=== PATIENT | female | born 1995 | race Caucasian/White ===

== ENCOUNTER 2020-03-24 10:11 | Outpatient (CLI) | payer OTHER, SELFPAY | END 2020-03-24 10:12 | disposition home or self-care (01) | LOC: ANHLAB 10:13 | PROVIDERS: PCP Internal Medicine; Visit Provider Clinical Nurse Specialist | DX: J02.9 Acute pharyngitis, unspecified (principal) | CPT/HCPCS: 87081; 87880 ==

== ENCOUNTER 2020-05-30 07:25 | Outpatient (CLI) | payer OTHER, SELFPAY ==
[2020-05-30 08:37] LABS: Beta HCG Quantitative < 2.39 mIU/ML
== END 2020-05-30 07:26 | disposition home or self-care (01) ==
PROVIDERS: PCP Internal Medicine; Visit Provider Obstetrics & Gynecology
DX: N92.6 Irregular menstruation, unspecified (principal)
CPT/HCPCS: 36415; 84702

== ENCOUNTER 2020-08-24 09:58 | Outpatient (CLI) | payer BC, SELFPAY ==
[2020-08-24 10:57] LABS: Beta HCG Quantitative 6.35 mIU/ML
[2020-08-27 08:20] LABS: Progesterone 12.6 ng/mL (***)
== END 2020-08-24 09:59 | disposition home or self-care (01) ==
PROVIDERS: PCP Internal Medicine; Visit Provider Obstetrics & Gynecology
DX: N92.5 Other specified irregular menstruation (principal)
CPT/HCPCS: 36415; 84144; 84702

== ENCOUNTER 2020-08-28 07:01 | Outpatient (CLI) | payer BC, SELFPAY ==
[2020-08-28 07:44] LABS: Beta HCG Quantitative 59.56 mIU/ML
== END 2020-08-28 07:02 | disposition home or self-care (01) ==
PROVIDERS: PCP Internal Medicine; Visit Provider Obstetrics & Gynecology
DX: N92.5 Other specified irregular menstruation (principal)
CPT/HCPCS: 36415; 84702

== ENCOUNTER 2020-09-04 07:09 | Outpatient (CLI) | payer BC, SELFPAY | END 2020-09-04 07:10 | disposition home or self-care (01) | PROVIDERS: PCP Internal Medicine; Visit Provider Obstetrics & Gynecology | DX: N92.5 Other specified irregular menstruation (principal) | CPT/HCPCS: 36415; 84702 ==

== ENCOUNTER 2020-09-27 14:09 | Outpatient (RCR) | payer BC, SELFPAY ==
[2020-09-27 16:18] LABS: Hematocrit 40.4 % (37.0-47.0); Hemoglobin 13.9 g/dL (12.0-15.0); Mean Corpuscular HGB Conc 34.4 g/dl (32-36); Mean Corpuscular Hemoglobin 30.5 pg (26-34); Mean Corpuscular Volume 88.6 fl (80-100); Mean Platelet Volume 9.7 fl (7.4-10.4); Platelet Count Result 304 k/mm3 (150-375); Red Blood Count 4.56 M/mm3 (4.2-5.4); Red Cell Distribution Width 12.3 % (11.5-14.5); White Blood Count 6.9 K/mm3 (4.5-10.0)
[2020-09-27 16:29] LABS: Glucose 1 Hour PP 50gm Dose 164 mg/dL
[2020-09-27 17:11] LABS: HIV 1/2 Ab P24 Ag Result Negative (Negative)
[2020-09-27 18:40] LABS: Hepatitis B Surface Antigen Negative (Negative); Rubella IgG Antibody 14.7 IU/ML
[2020-09-28 06:53] LABS: Rapid Plasma Reagin Non-Reactive (NonReactive)
[2020-09-30 15:05] LABS: Varicella IgM Antibody <=0.90 (<=0.90)
[2020-10-02 12:16] LABS: CMV IgG Antibody <0.60 U/mL (<0.60)
== END 2020-12-26 23:59 | disposition home or self-care (01) ==
LOC: ANHLAB 14:09
PROVIDERS: PCP Internal Medicine; Visit Provider Obstetrics & Gynecology
DX: Z11.4 Encounter for screening for human immunodeficiency virus [HIV] (principal); N92.5 Other specified irregular menstruation
CPT/HCPCS: 36415; 82947; 84702; 85027; 86592; 86644; 86703; 86747; 86762; 86787; 86850; 86900; 86901; 87086; 87340; G0432

== ENCOUNTER 2020-10-09 07:32 | Outpatient (CLI) | payer BC, SELFPAY ==
[2020-10-09 08:00] LABS: Hemoglobin A1C 4.7 % (<5.7)
[2020-10-09 08:10] LABS: Glucose Fasting Gestational 88 mg/dL (>/=95)
[2020-10-09 09:53] LABS: Glucose 1 Hour Gest 124 mg/dL (>/=180)
[2020-10-09 10:55] LABS: Glucose 2 Hour Gest 116 mg/dL (>/= 155)
[2020-10-09 11:59] LABS: Glucose 3 Hour Gest 97 mg/dL (>/=140)
== END 2020-10-09 07:33 | disposition home or self-care (01) ==
PROVIDERS: PCP Internal Medicine; Visit Provider Obstetrics & Gynecology
DX: Z13.1 Encounter for screening for diabetes mellitus (principal)
CPT/HCPCS: 36415; 82951; 82952; 83036

== ENCOUNTER 2021-02-13 07:05 | Outpatient (CLI) | payer BC, SELFPAY ==
[2021-02-13 07:42] LABS: Hematocrit 38.3 % (37.0-47.0); Hemoglobin 12.9 g/dL (12.0-15.0); Mean Corpuscular HGB Conc 33.7 g/dl (32-36); Mean Corpuscular Hemoglobin 30.1 pg (26-34); Mean Corpuscular Volume 89.5 fl (80-100); Mean Platelet Volume 9.8 fl (7.4-10.4); Platelet Count Result 277 k/mm3 (150-375); Red Blood Count 4.28 M/mm3 (4.2-5.4); Red Cell Distribution Width 12.5 % (11.5-14.5); White Blood Count 6.7 K/mm3 (4.5-10.0)
[2021-02-13 07:59] LABS: Glucose Fasting Gestational 86 mg/dL (>/=95)
[2021-02-13 09:25] LABS: Glucose 1 Hour Gest 115 mg/dL (>/=180)
[2021-02-13 09:42] LABS: HIV 1/2 Ab P24 Ag Result Negative (Negative)
[2021-02-13 10:17] LABS: Glucose 2 Hour Gest 113 mg/dL (>/= 155)
[2021-02-13 11:21] LABS: Glucose 3 Hour Gest 107 mg/dL (>/=140)
[2021-02-13] MEDS: RHO(D) IMMUNE GLOBULIN 300 MCG/2 ML SYRINGE IM (11:33)
== END 2021-02-13 07:06 | disposition home or self-care (01) ==
PROVIDERS: PCP Internal Medicine; Visit Provider Obstetrics & Gynecology
DX: Z34.02 Encounter for supervision of normal first pregnancy, second trimester (principal); Z3A.00 Weeks of gestation of pregnancy not specified
CPT/HCPCS: 36415; 82951; 82952; 85027; 85461; 86703; 90384; 96372; G0432; J2790

== ENCOUNTER 2021-04-15 14:49 | Outpatient (CLI) | payer BC, SELFPAY ==
[2021-04-15 15:40] VITALS: BP 129/87; PULSE 92
[2021-04-15 15:44] VITALS: BP 129/87; PULSE 92
== END 2021-04-15 15:50 | disposition home or self-care (01) ==
LOC: ANHOBOP 15:29
PROVIDERS: PCP Internal Medicine; Referring Provider Obstetrics & Gynecology; Visit Provider Obstetrics & Gynecology
DX: O41.93X3 Disorder of amniotic fluid and membranes, unspecified, third trimester, fetus 3 (principal); Z3A.36 36 weeks gestation of pregnancy
CPT/HCPCS: 59025; 84112

== ENCOUNTER 2021-04-26 15:48 | Outpatient (RCR) | payer BC, SELFPAY ==
[2021-02-28 16:22] VITALS: BP 132/79; PULSE 94
[2021-03-07 16:54] VITALS: BP 125/60; PULSE 89
[2021-03-15 16:17] VITALS: BP 120/62; PULSE 85
[2021-03-21 16:50] VITALS: BP 118/59; PULSE 88
[2021-04-04 15:44] VITALS: BP 129/77; PULSE 95
[2021-04-11 14:04] VITALS: BP 124/69; PULSE 113
[2021-04-19 15:40] VITALS: BP 141/79; PULSE 99
[2021-04-26 16:07] LABS: Basophils Percent Auto 0.1 % (0.2-1.2); Eosinophils Percent Auto 0.6 % (0-4.4); Hematocrit 39.6 % (37.0-47.0); Hemoglobin 13.2 g/dL (12.0-15.0); Immature Granulocyte Absolute 0.02 K/mm3 (0.00-0.031); Immature Granulocyte Percent A 0.3 % (0-0.5); Lymphocytes Absolute Auto 1.46 K/mm3 (0.9-3.2); Lymphocytes Percent Auto 21.7 % (18.3-44.2); Mean Corpuscular HGB Conc 33.3 g/dl (32-36); Mean Corpuscular Hemoglobin 30.5 pg (26-34); Mean Corpuscular Volume 91.5 fl (80-100); Mean Platelet Volume 11.5 fl (7.4-10.4); Monocytes Absolute Auto 0.7 K/mm3 (0.1-0.6); Monocytes Percent Auto 10.6 % (2.6-8.5); Neutrophils Absolute Auto 4.5 K/mm3 (1.3-6.7); Neutrophils Percent Auto 66.7 % (45.5-73.1); Platelet Count Result 267 k/mm3 (150-375); Red Blood Count 4.33 M/mm3 (4.2-5.4); Red Cell Distribution Width 13.1 % (11.5-14.5); White Blood Count 6.7 K/mm3 (4.5-10.0)
[2021-04-26 16:23] LABS: Alanine Aminotransferase 45 U/L (4-35); Alkaline Phosphatase 170 U/L (38-126); Anion Gap 10 mmol/L (8-16); Aspartate Amino Transferase 41 U/L (14-36); Bilirubin,Total 0.5 mg/dL (0.2-1.3); Blood Urea Nitrogen 10 mg/dL (7-17); Calcium 8.8 mg/dL (8.4-10.2); Carbon Dioxide 19 mmol/L (22-30); Chloride 107 mmol/L (98-107); Estimated Glomerular Filt Rate > 60; Glucose 99 mg/dL (65-110); Sodium 136 mmol/L (137-145); Uric Acid 4.7 mg/dL (2.5-7.5)
[2021-04-26 16:31] VITALS: BP 140/85; PULSE 93
[2021-04-26 16:35] LABS: Creatinine Urine 62.6 mg/dL; Total Protein Urine Random 11 mg/dL; Ur Ttl Prot Creatinine Ratio 0.18 mg/mg (0-0.20)
== END 2021-05-07 07:37 | disposition home or self-care (01) ==
LOC: ANHOBOP 15:48
PROVIDERS: PCP Internal Medicine; Visit Provider Obstetrics & Gynecology
DX: O36.8130 Decreased fetal movements, third trimester, not applicable or unspecified (principal); O26.03 Excessive weight gain in pregnancy, third trimester; Z3A.31 31 weeks gestation of pregnancy; O36.63X0 Maternal care for excessive fetal growth, third trimester, not applicable or unspecified; Z3A.32 32 weeks gestation of pregnancy; Z3A.33 33 weeks gestation of pregnancy; Z3A.35 35 weeks gestation of pregnancy; Z3A.36 36 weeks gestation of pregnancy; Z3A.37 37 weeks gestation of pregnancy; Z3A.38 38 weeks gestation of pregnancy
CPT/HCPCS: 36415; 59025; 80053; 82570; 84156; 84550; 85025

== ENCOUNTER 2021-05-01 16:37 | Inpatient (IN) | payer BC, SELFPAY ==
[2021-05-01] VITALS (14 sets, daily range): BP systolic 116–162; BP diastolic 53–93; PULSE 84–116; RESP 16–18; TEMP 36.6–36.7; BMI 45.6
--- NOTE | 2021-05-01 16:37 | LDADM ---
This patient, Saskia Long, was admitted to Labor/Delivery/Recovery 107 on 05/01/21 at 16:37. Plans for labor, pain management and were discussed with patient. Patient/family oriented to hospital policies and general routines including ID bracelet, bed and alarms, visiting hours, pain management, procedures, bathroom and other care routines, personal items, smoking policy, room service/diet and guest tray routines, infant security routines, and visiting hours. Patient/Family are encouraged to report perceived risks to care and to ask questions if they do not understand what they are told or what they should do. See OBIX for further documentation.
[2021-05-01 17:42] LABS: Basophils Percent Auto 0.3 % (0.2-1.2); Eosinophils Percent Auto 0.1 % (0-4.4); Immature Granulocyte Absolute 0.01 K/mm3 (0.00-0.031); Immature Granulocyte Percent A 0.1 % (0-0.5); Lymphocytes Absolute Auto 0.82 K/mm3 (0.9-3.2); Lymphocytes Percent Auto 10.3 % (18.3-44.2); Mean Corpuscular HGB Conc 34.2 g/dl (32-36); Mean Corpuscular Volume 90.7 fl (80-100); Mean Platelet Volume 11.6 fl (7.4-10.4); Monocytes Absolute Auto 0.8 K/mm3 (0.1-0.6); Monocytes Percent Auto 10.1 % (2.6-8.5); Neutrophils Absolute Auto 6.3 K/mm3 (1.3-6.7); Neutrophils Percent Auto 79.1 % (45.5-73.1); Platelet Count Result 246 k/mm3 (150-375); Red Blood Count 4.19 M/mm3 (4.2-5.4); Red Cell Distribution Width 13.3 % (11.5-14.5)
[2021-05-01] MEDS: DINOPROSTONE 10 MG VAG INSERT VAGINAL (17:58)
--- NOTE | 2021-05-01 18:10 | PC.NURSE ---
Notified Dr. Butler of patient elevated BP on admission. Orders received.
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
--- NOTE | 2021-05-01 18:35 | WPDHPUPDATE1 ---
History and Physical Update Update Date/Time: 05/01/21 18:35 History and Physical has been reviewed, including an updated exam of the patient. There are NO changes in the patient's condition. Risks, benefits, and alternatives have been discussed and questions answered. Patient agrees to proceed with procedure.
[2021-05-01 19:10] LABS: Alanine Aminotransferase 36 U/L (4-35); Albumin Level 3.6 g/dL (3.5-5.1); Alkaline Phosphatase 146 U/L (38-126); Anion Gap 5 mmol/L (8-16); Aspartate Amino Transferase 32 U/L (14-36); Bilirubin,Total 0.5 mg/dL (0.2-1.3); Blood Urea Nitrogen 16 mg/dL (7-17); Calcium 9.1 mg/dL (8.4-10.2); Carbon Dioxide 24 mmol/L (22-30); Chloride 106 mmol/L (98-107); Estimated CRCL calculation 103 ml/min; Estimated Glomerular Filt Rate > 60; Glucose 97 mg/dL (65-110); Potassium 3.9 mmol/L (3.4-5.0); Sodium 135 mmol/L (137-145); Uric Acid 5.3 mg/dL (2.5-7.5)
[2021-05-01] MEDS: ZOLPIDEM TARTRATE (*CRX) 5 MG TABLET PO (20:09)
[2021-05-01 20:25] LABS: Add Urine Microscopic? YES; Appearance Urine Clear (Clear); Bacteria Urine Trace /hpf; Bilirubin Urine Negative (Negative); Blood Urine Negative (Negative); Color Urine Yellow (Yellow); Glucose Urine UA 1+ mg/dL (Negative); Ketones Urine Negative (Negative); Leukocyte Esterase Ur Negative LEU/UL (NEGATIVE); Mucus Urine Rare /lpf; Nitrate Urine Negative (Negative); Protein Urine Negative (Negative); RBC Urine 0-2 /hpf (0-2); Specific Grav Ur 1.024 (1.001-1.035); Squamous Epithelial Cell Urine Rare /hpf (Few); Urobilinogen Urine Negative mg/dL (<2.0); WBC Urine 0-3 /hpf (0-3)
[2021-05-01 20:26] LABS: Creatinine Urine 124.4 mg/dL; Total Protein Urine Random 7 mg/dL; Ur Ttl Prot Creatinine Ratio 0.06 mg/mg (0-0.20)
--- NOTE | 2021-05-01 22:10 | WPDANESEPP ---
Anes - Eval Pre Procedure Procedure: labor epidural Date/Time: 05/01/21 22:10 Surgeon: jody Pre Op Diagnosis: mil Patient Data Age: 25 Gender: F Height: 1.52 m Weight: 106 kg Last Vital Signs Temp 36.6 C 05/01/21 19:22 Pulse 90 05/01/21 20:01 Resp 16 05/01/21 19:22 BP 132/63 05/01/21 20:01 Allergies Allergy/AdvReac Type Severity Reaction Status Date / Time No Known Allergies Allergy Verified 03/21/21 16:26 Home Medications Medication Instructions Recorded Confirmed Type calcium carbonate [Tums] 300 mg PO QID PRN 03/21/21 05/01/21 History cholecalciferol (vitamin D3) 25 mcg PO DAILY 03/21/21 05/01/21 History [Vitamin D3] famotidine [Pepcid AC] 10 mg PO BID 03/21/21 05/01/21 History Vitamin 1 tablet PO DAILY 05/01/21 05/01/21 History Laboratory Tests 05/01/21 05/01/21 05/01/21 17:35 17:35 17:35 WBC 8.0 K/mm3 K/mm3 (4.5-10.0) RBC 4.19 M/mm3 L M/mm3 (4.2-5.4) Hgb 13.0 g/dL g/dL (12.0-15.0) Hct 38.0 % % (37.0-47.0) MCV 90.7 fl fl (80-100) MCH 31.0 pg pg (26-34) MCHC 34.2 g/dl g/dl (32-36) RDW 13.3 % % (11.5-14.5) Plt Count 246 k/mm3 k/mm3 (150-375) MPV 11.6 fl H fl (7.4-10.4) Immature Gran % (Auto) 0.1 % % (0-0.5) Neut % (Auto) 79.1 % H % (45.5-73.1) Lymph % (Auto) 10.3 % L % (18.3-44.2) Lamar % (Auto) 10.1 % H % (2.6-8.5) Eos % (Auto) 0.1 % % (0-4.4) Baso % (Auto) 0.3 % % (0.2-1.2) Lymph # (Auto) 0.82 K/mm3 L K/mm3 (0.9-3.2) Lamar # (Auto) 0.8 K/mm3 H K/mm3 (0.1-0.6) Eos # (Auto) 0.0 K/mm3 K/mm3 (0-0.3) Baso # (Auto) 0.0 K/mm3 K/mm3 (0.0-0.1) Abs Immat Gran (auto) 0.01 K/mm3 K/mm3 (0.00-0.031) Absolute Neuts (auto) 6.3 K/mm3 K/mm3 (1.3-6.7) Absolute Nucleated RBC 0.0 K/mm3 K/mm3 (0.0-0.012) Nucleated RBC % 0.0 % % (0.0-0.2) Sodium Potassium Chloride Carbon Dioxide Anion Gap BUN Creatinine Estim Creat Clear Calc Estimated GFR Glucose Uric Acid Calcium Total Bilirubin AST ALT Alkaline Phosphatase Total Protein Albumin Urine Color Urine Appearance Urine pH Ur Specific Deputy Urine Protein Urine Glucose (UA) Urine Ketones Ur Blood (Man) Urine Nitrate Urine Bilirubin Urine Urobilinogen Ur Leukocyte Esterase Urine RBC Urine WBC Ur Squamous Epith Cells Urine Bacteria Urine Mucus U Random Total Protein Urine Creatinine Protein/Creat Ratio 2 RPR Pending Blood Type A Negative Antibody Screen Negative 05/01/21 05/01/21 05/01/21 18:53 20:10 20:10 WBC RBC Hgb Hct MCV MCH MCHC RDW Plt Count MPV Immature Gran % (Auto) Neut % (Auto) Lymph % (Auto) Lamar % (Auto) Eos % (Auto) Baso % (Auto) Lymph # (Auto) Lamar # (Auto) Eos # (Auto) Baso # (Auto) Abs Immat Gran (auto) Absolute Neuts (auto) Absolute Nucleated RBC Nucleated RBC % Sodium 135 mmol/L L mmol/L (137-145) Potassium 3.9 mmol/L mmol/L (3.4-5.0) Chloride 106 mmol/L mmol/L (98-107) Carbon Dioxide 24 mmol/L mmol/L (22-
[2021-05-02] VITALS (97 sets, daily range): BP systolic 86–155; BP diastolic 57–118; PULSE 25–271; RESP 14–22; TEMP 36.3–36.8; O2SAT 81–100
[2021-05-02] MEDS: fentaNYL CITRATE INJ (*CRX) 100 MCG/2 ML VIAL 50 MCG IV PUSH (01:19)
[2021-05-02] MEDS: fentaNYL CITRATE INJ (*CRX) 100 MCG/2 ML VIAL IV PUSH ×3 (03:14→07:30)
[2021-05-02] MEDS: OXYTOCIN 30 UNITS/NS 500 ML 30 UNITS/500 ML BAG IV CONT (05:17)
[2021-05-02] MEDS: LACTATED RINGERS 1,000 ML 125 ML IV CONT ×2 (05:18→08:53)
[2021-05-02] MEDS: ONDANSETRON INJ 4 MG/2 ML VIAL IV PUSH ×3 (05:21→18:03)
--- NOTE | 2021-05-02 07:39 | PM.OBPNLAB ---
Pain Control Date/time seen: 05/02/21 07:39 Pain control: narcotic analgesia Pelvic Exam Dilation (cm): 1 Effacement (%): 80 station: -2 Amniotic membrane status: Intact Contractions Monitor mode: External Contraction frequency: 2 Contraction pattern: Regular Status status: Category ll Comments: occasional variables Assessment and Plan Pitocin rate (mU/min): 4 Assessment: induction ongoing Plan: continuous present management Comments: - plan for epidural, then AROM
[2021-05-02 08:20] LABS: Rapid Plasma Reagin Non-Reactive (NonReactive)
[2021-05-02] MEDS: TERBUTALINE SULFATE 1 MG/ML VIAL (12:19)
--- NOTE | 2021-05-02 12:19 | WPDANESEFPP ---
Anes - Eval Final PreProcedure Day of Procedure 05/02/21 12:19 Patient weight: morbidly obese Heart: regular rate and rhythm Lungs: clear to auscultation Airway: Mallampati scale class II Neurological: alert and oriented ASA classification: III Emergent: yes Anesthetic plan: proceed Anesthesia type and monitoring: regional epidural Other findings: use epid for c/s Results Review: All pre-operative results and documents have been reviewed as part of the pre-operative evaluation. Informed Consent: The patient's anesthetic plan and its attendant risks and benefits were discussed with the patient/family/POA. Questions were solicited and answers provided to the satisfaction of the patient/family/POA.
--- NOTE | 2021-05-02 12:22 | PM.OBPNLAB ---
Pain Control Date/time seen: 05/02/21 12:22 Pain control: epidural Pelvic Exam Dilation (cm): 2 Effacement (%): 80 station: -2 Amniotic membrane status: Ruptured (AROM, thick mec @ 1210) Contractions Monitor mode: Internal Contraction frequency: 2 Contraction pattern: Regular Status status: Category ll Comments: prolonged decel to 50's -70's for 7 min Assessment and Plan Pitocin rate (mU/min): 12 (then stopped) Plan: Comments: - intrauterine resuscitation provided; pit stopped, IVFs increased - terb given - risks and benefits explained-- proceed with pLTCS
--- NOTE | 2021-05-02 13:34 | PM.OBPRVD ---
OB - Delivery Note Procedure Delivery date: 05/02/21 Procedure: Procedures Operation Date: 05/02/21 12:30 Actual Procedure Side Surgeon p Section Not Applicable Lucy Butler MD events: Labor Induction, Polyhydramnios and Meconium Stained Fluid (thick) Intrapartal events: Deceleration (prolonged to 50-70's x7 min) Induction method: per cervidil protocol Delivery augmentation: rupture of membranes and pitocin Delivery monitor: external FHT and internal uterine Route of delivery: Specimen: Yes Quantitative Blood Loss (ml): 595 Anesthesia type: Epidural Disposition: PACU Baby Date of : 05/02/21 Time of : 12:45 Weeks of gestation at delivery: 39 (.1) Infant gender: Male Weight (pounds): 7 Weight (ounces): 12 presentation: vertex position: Left Occiput Transverse Placenta delivery description: Expressed cord vessel description: 3 Vessels score one minute: 7 score five minutes: 7 score ten minutes: 9 Narrative: She was counseled on all risks and benefits of emergent due to non-reassuring heart tones. Intrauterine resuscitation with movement, oxygen, IV fluids, discontinuation of pitocin and even terbutaline was given without return of heart tones to baseline. She was taken to the operating room where spinal epidural was noted to be adequate. She was then prepped and draped in the normal sterile fashion. She received 2g Ancef and a time out was performed. A Pfannenstiel incision was made in the skin and carried down to the underlying fascia. The fascia was nicked on either side of the midline and the fascial incision was extended laterally and superiorly. The fascia was then elevated and the underlying rectus muscles were dissected off the fascia, superiorly and inferiorly. The rectus muscles were then in the midline and the peritoneum was entered bluntly. Once adequate exposure was obtained, a Mobius self retractor was placed within the abdomen. A bladder flap was created. A low transverse incision was made on the lower uterine segment and thick meconium stained fluid was noted. The occiput was brought to the hysterotomy and the head was easily delivered. The shoulder and body then followed without complications. The infant had spontaneous cry and the mouth and nose were bulb suctioned. The cord was clamped and cut and the infant was handed off to the awaiting pediatric team. A segment of the cord was collected for cord gases. The remaining cord blood was collected for typing. With pitocin infusing, the placenta delivered with gentle traction on the cord without complications. The uterus was then cleared out of all clots and debris using a clean, moist lap. The hysterotomy was then repaired in a running interlocking fashion using 0 Vicryl. Uterine atony was noted and additional pitocin was placed in the bag (total of 40u). A second layer imbricating suture was then made using 0 Vicryl. Atony was once again noted and Methergine 0.2mg IM was given. A small hematoma was noted on the left, lower aspect of the hysterotomy and a figure of eight using 0 Vicryl was placed. The hysterotomy was found to be hemostatic and good uterine tone was noted. The bilateral adnexa were examined and found to be normal. The pelvis was cleared of all clots and fluid. The Mobius retractor was removed from the abdomen. The peritoneum, muscle, and fascia were examined and made hemostatic with bovie cautery. The fascia was then repaired using a 0 Vicryl suture in a running fashion. The subcutaneous tissue was then irrigated and made hemostatic with bovie cautery. The subcutaneous tissue was then reapproximated using 2-0 Vicryl. The skin was then closed using 4-0 Monocryl in a running subcuticular fashion. Sponge, lap, needle and instrument counts were correct at the end of the procedure x2. The patient tolerated the procedure well and was taken to recovery in
[2021-05-02] MEDS: KETOROLAC 30 MG/ML VIAL (*BKC) IM (14:28)
--- NOTE | 2021-05-02 15:46 | PC.NURSE ---
Patient transferred to post room #286 per stretcher from labor and delivery. Support person present. Oriented to unit, room, information board, rooming in, admission packet and security measures. Patient verbalizes understanding.
[2021-05-02] MEDS: KETOROLAC 30 MG/ML VIAL (*BKC) IV PUSH (20:14)
[2021-05-02] MEDS: FAMOTIDINE 10 MG TABLET PO (20:15)
[2021-05-02] MEDS: DOCUSATE SODIUM 100 MG CAPSULE PO (20:15)
[2021-05-02] MEDS: DEXTROSE 5%/0.45% SOD CHL 1,000 ML 125 ML IV CONT (20:45)
[2021-05-03 00:30] VITALS: BP 103/61; PULSE 72; RESP 18; TEMP 36.6; O2SAT 95
[2021-05-03] MEDS: KETOROLAC 30 MG/ML VIAL (*BKC) IV PUSH (04:09)
[2021-05-03 04:20] VITALS: BP 109/46; PULSE 70; RESP 18; TEMP 36.9; O2SAT 97
[2021-05-03 04:48] LABS: Basophils Percent Auto 0.1 % (0.2-1.2); Eosinophils Percent Auto 0.1 % (0-4.4); Hematocrit 33.7 % (37.0-47.0); Hemoglobin 11.3 g/dL (12.0-15.0); Immature Granulocyte Absolute 0.04 K/mm3 (0.00-0.031); Immature Granulocyte Percent A 0.4 % (0-0.5); Lymphocytes Absolute Auto 1.39 K/mm3 (0.9-3.2); Lymphocytes Percent Auto 13.9 % (18.3-44.2); Mean Corpuscular HGB Conc 33.5 g/dl (32-36); Mean Corpuscular Hemoglobin 30.1 pg (26-34); Mean Corpuscular Volume 89.9 fl (80-100); Mean Platelet Volume 11.4 fl (7.4-10.4); Monocytes Absolute Auto 1.2 K/mm3 (0.1-0.6); Monocytes Percent Auto 11.6 % (2.6-8.5); Neutrophils Absolute Auto 7.4 K/mm3 (1.3-6.7); Neutrophils Percent Auto 73.9 % (45.5-73.1); Platelet Count Result 217 k/mm3 (150-375); Red Blood Count 3.75 M/mm3 (4.2-5.4); Red Cell Distribution Width 13.5 % (11.5-14.5)
[2021-05-03 08:45] VITALS: BP 115/52; PULSE 88; RESP 18; TEMP 36.8; O2SAT 97
[2021-05-03] MEDS: MULTIVIT/MIN/PREN/FOL AC/IRON TABLET 1 TAB PO (09:11)
[2021-05-03] MEDS: IBUPROFEN 600 MG TABLET PO ×3 (09:11→21:53)
[2021-05-03] MEDS: HYDROcodone/acetaminophen (*CRX) 5-325 MG TABLET 1 TAB PO ×4 (09:11→21:53)
[2021-05-03] MEDS: DOCUSATE SODIUM 100 MG CAPSULE PO ×2 (09:11→17:17)
--- NOTE | 2021-05-03 09:52 | WPDANLDPN2 ---
Anes-Prog Note L&D Date/Time: 05/03/21 09:52 Comfortable throughout: labor and delivery Neuraxial method: epidural Epidural/Spinal procedure site: clean & non-tender Neuro status: Neuro function grossly intact. Cardiovascular status: normal Respiratory status: normal Airway patency: baseline Mental status: baseline Post-Op hydration status: normal Vital Signs: Last Vital Signs Temp 36.9 C 05/03/21 04:20 Pulse 70 05/03/21 04:20 Resp 18 05/03/21 04:20 BP 109/46 L 05/03/21 04:20 Pulse Ox 97 05/03/21 04:20 Pain score (VAS): 0 I/O: Intake & Output 05/02/21 05/03/21 05/03/21 23:59 07:59 15:59 Intake Total 100 500 Output Total 500 1550 Balance -400 -1050 Post-procedural complaints: none Patient feedback: Patient satisfied with anesthetic care.
[2021-05-03 11:53] VITALS: BP 122/64; PULSE 80; RESP 18; TEMP 36.4; O2SAT 98
--- NOTE | 2021-05-03 13:01 | PM.OBPNVD ---
OB - PN: Subj Subjective Date/time seen: 05/03/21 07:01 POD#1 Saskia reports doing well today. She reports her pain is controlled with PO pain meds. 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 She has ambulated, voided, passed gas and tolerated regular diet. Did have N/V overnight, but none today. She is breast feeding. She would like to go home tomorrow. She would like her son circumcised. She denies fever, chills, CP, SOB, RIOS, vision changes, N/V, dizziness or palpations. OB - PN: Obj Data Labs CBC & Chem 7: 05/03/21 04:26 05/01/21 18:53 Labs: Laboratory Results - last 24 hr 05/03/21 04:26 WBC 10.0 RBC 3.75 L Hgb 11.3 L Hct 33.7 L MCV 89.9 MCH 30.1 MCHC 33.5 RDW 13.5 Plt Count 217 MPV 11.4 H Immature Gran % (Auto) 0.4 Neut % (Auto) 73.9 H Lymph % (Auto) 13.9 L Roosevelt % (Auto) 11.6 H Eos % (Auto) 0.1 Baso % (Auto) 0.1 L Lymph # (Auto) 1.39 Roosevelt # (Auto) 1.2 H Eos # (Auto) 0.0 Baso # (Auto) 0.0 Abs Immat Gran (auto) 0.04 H Absolute Neuts (auto) 7.4 H Absolute Nucleated RBC 0.0 Nucleated RBC % 0.0 OB - PN A/P Assessment and Plan (1) Status post primary low transverse section: Code(s): Z98.891 - History of uterine scar from previous surgery Status: Acute Plan day: 1 Plan: routine care Comments: - possible d/c home tomorrow as she's already meeting all post-op milestones; want to verify pain is still controlled Time Spent With Patient Time: Total time spent is greater than 50% in coordination of care (as documented) at patient's floor/unit and/or counseling patient: Review of Systems Review of Systems: All systems reviewed & are unremarkable except as noted in HPI and below (HPI) Exam Const: General: cooperative, comfortable and no acute distress Nutritional Appearance: obese Resp: Effort & Inspection: normal respiratory effort Auscultation: clear to auscultation bilaterally Cardio: Rate: regular rate GI: Inspection: non-distended and incision (covered with clean dressing) GI Palp: Yes abdominal tenderness (appropriate) and Yes Soft to palpation Auscultation: normal bowel sounds : Other: fundus firm Skin: General skin exam: normal color Neuro: General: patient oriented x3 Extrem: General: normal to inspection Psych: Appearance: grossly normal Affect: normal affect Attitude: cooperative
[2021-05-03] MEDS: METOCLOPRAMIDE HCL INJ 10 MG/2 ML VIAL IV PUSH (17:16)
[2021-05-03 19:56] VITALS: BP 121/44; PULSE 83; RESP 18; TEMP 36.5; O2SAT 98
[2021-05-04] MEDS: HYDROcodone/acetaminophen (*CRX) 5-325 MG TABLET 1 TAB PO ×3 (04:01→12:19)
[2021-05-04 08:10] VITALS: BP 134/73; PULSE 85; RESP 16; TEMP 37.2; O2SAT 99
[2021-05-04] MEDS: IBUPROFEN 600 MG TABLET PO (08:36)
[2021-05-04] MEDS: DOCUSATE SODIUM 100 MG CAPSULE PO (08:36)
[2021-05-04] MEDS: MULTIVIT/MIN/PREN/FOL AC/IRON TABLET 1 TAB PO (08:36)
--- NOTE | 2021-05-04 10:13 | PM.OBPNVD ---
OB - PN: Subj Subjective Date/time seen: 05/04/21 10:13 POD#2 Saskia reports doing well today. She reports her pain is controlled with PO pain meds. 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 She has ambulated, voided, passed gas and tolerated regular diet. She is breast/bottle feeding. She would like to go home today. She denies N/V, fever, chills, CP, SOB, RIOS, vision changes, N/V, dizziness or palpations. OB - PN: Obj Data Labs CBC & Chem 7: 05/03/21 04:26 05/01/21 18:53 OB - PN A/P Assessment and Plan (1) Status post primary low transverse section: Code(s): Z98.891 - History of uterine scar from previous surgery Status: Acute Plan day: 2 Plan: routine care and discharge home Comments: - f/u in 2 wks - remove dressing by Friday, incision care discussed - No heavy lifting; pelvic rest; take meds as prescribed - ER return precautions: fever, bleeding, n/v/abd pain, HTN Time Spent With Patient Time: Total time spent is greater than 50% in coordination of care (as documented) at patient's floor/unit and/or counseling patient: Review of Systems Review of Systems: All systems reviewed & are unremarkable except as noted in HPI and below (HPI) Exam Const: General: cooperative, comfortable and no acute distress Nutritional Appearance: obese Resp: Effort & Inspection: normal respiratory effort Auscultation: clear to auscultation bilaterally Cardio: Rate: regular rate GI: Inspection: incision (covered w/ clean dressing) GI Palp: No abdominal tenderness and Yes Soft to palpation Percussion: Yes normal to percussion : Other: fundus firm Skin: General skin exam: normal color Neuro: General: patient oriented x3 Extrem: General: normal to inspection Psych: Appearance: grossly normal Affect: normal affect Attitude: cooperative
--- NOTE | 2021-05-04 11:21 | PC.NURSE ---
Mother states she had some attempts but struggled and prefers to bottle feed formula or breastmilk. States she has not been pumping while in the hospital and will be getting discharged soon. Mother states she has a spectra pump at home and plans to possibly use that. Discussed pump settings and pumping frequency. Given pumping log and discussed hands on pumping. Mom asks what to do if she decides not to pump, discussed ways to avoid breast stimulation and to cope with engorgement. Instructions given on breast pump care and usage, pumping schedule, nipple care, and collection and storage of breast milk. Encouraged [id number], breast massage and manual expression to stimulate supply.
--- NOTE | 2021-05-04 11:47 | PC.NURSE ---
Patient viewed the discharge video Mother & Baby Care, The First Two Weeks . Patient was given the opportunity and encouraged to ask questions. Patient verbalized understanding of information shared and has been given the mother/baby guide for home reference.
[2021-05-05 08:45] VITALS: BP 133/77; PULSE 80; RESP 20; TEMP 36.8; O2SAT 100
--- NOTE | 2021-05-12 08:51 | PM.OBDSVD ---
DS: Admitting Diagnosis Discharge Date 05/04/21 Admitting Diagnosis induction of labor DS: Discharge Diagnosis Discharge Diagnosis (1) Status post primary low transverse section: Code(s): Z98.891 - History of uterine scar from previous surgery Status: Acute OB - DS: Summary OB Procedures : NST and Ultrasound OB Procedures Intrapartum: (2/2 non-reassuring heart tones) low cervical, transverse OB Procedures: : None Peripartum Data Delivery Method: Section Procedures: Procedures Operation Date: 05/02/21 12:30 Actual Procedure Side Surgeon p Section Not Applicable Lucy Butler MD complications: none 1: Gender: Male Disposition of : home Status at Discharge Functional status at discharge: independent ambulation Overall status at discharge: patient is back to baseline Time Spent with Patient Time attestation: Total time spent providing and/or coordinating discharge services: Time spent: Less than 30 minutes Exam Const: General: cooperative, comfortable and no acute distress Nutritional Appearance: obese Resp: Effort & Inspection: normal respiratory effort Auscultation: clear to auscultation bilaterally Cardio: Rate: regular rate GI: Inspection: non-distended and incision (with clean dressing) GI Palp: No abdominal tenderness and Yes Soft to palpation Auscultation: normal bowel sounds : Other: fundus firm Skin: General skin exam: normal color Neuro: General: patient oriented x3 Extrem: General: normal to inspection Psych: Appearance: grossly normal Affect: normal affect Attitude: cooperative DS: Data Data Completed and Pending Completed studies during hospitalization: Pending at discharge 05/02/21 14:08 Surgical [PTH] Routine Discharge Plan Discharge Attending physician on discharge: Lucy Butler Consulting providers: Conrado Morgan Discharging Clinician: Lucy Butler Anticipated Discharge Date/Time: 05/04/21 12:00 Patient Disposition: Home, Self-Care Activity: may shower and pelvic rest Diet: regular Discharge Instructions: no heavy lifting >10lbs Education: Mom and Baby Guide Given to: Mother Follow-Up: Call your delivering provider's office for an appointment to be seen in: 4 Weeks Mom and baby should come to the [facility] for the follow-up appointment. Appointment Date/Time: May 05, 2021 at 8:00 am What to expect at your follow-up visit: Blood Pressure Check Physical Assessment Call [phone] if you are unable to keep your appointment time. BREAST CARE: * Wear a snug supportive bra. * For engorgement discomfort: Breast Feeding: * Apply warm moist washcloths * Express milk as needed to relieve engorgement * Wear loose clothing Bottle Feeding: * May apply ice packs * For sore nipples: * Identify correct latch-on * Apply warm moist washcloths before and after nursing * Air dry nipples after nursing * May apply Lansinoh cream to nipple EPISIOTOMY/PERINEAL CARE: * Until bleeding stops, use your reggie bottle after urinating * Change your pad frequently throughout the day * You may take sitz baths several times a day (fill your bathtub with warm water and soak for 20 minutes.) Do NOT bathe in the water * No tub baths until seen by your physician - You may shower ACTIVITY: * Rest as much as possible. * Do not exercise or lift anything heavier than your baby (such as laundry or other children.) * Avoid stairs or driving as much as possible. * Do not put anything into the vagina. No douching, tampons, or sexual activity until seen by physician. NOTIFY PHYSICIAN IF YOU HAVE ANY QUESTIONS OR IF ANY OF THE FOLLOWING SYMPTOMS OCCUR: * If your episiotomy or incision becomes red, swollen, or more
== END 2021-05-04 12:26 | disposition home or self-care (01) | DRG 788 ==
LOC: ANHLDR 05-02 13:01 → ANHOB2 05-02 15:55
PROVIDERS: Admitting Provider Obstetrics & Gynecology; PCP Internal Medicine; Visit Provider Obstetrics & Gynecology
PROC: 10D00Z1 Extraction of Products of Conception, Low, Open Approach (ICD-10-PCS; CPT 59514; principal; 2021-05-02 12:30)
DX: O40.3XX0 Polyhydramnios, third trimester, not applicable or unspecified (principal); O99.214 Obesity complicating childbirth; E66.01 Morbid (severe) obesity due to excess calories; O76 Abnormality in fetal heart rate and rhythm complicating labor and delivery; Z3A.39 39 weeks gestation of pregnancy; Z37.0 Single live birth
CPT/HCPCS: 36415; 80053; 81001; 82570; 84156; 84550; 85025; 86592; 86850; 86900; 86901; 88307; A9270; J0131; J1100; J1885; J2274; J2405; J2590; J2765; J3010; J3105; J7120

== ENCOUNTER 2021-08-21 08:09 | Outpatient (CLI) | payer BC, SELFPAY ==
--- NOTE | ~2021-08-21 | US_ITS ---
EXAMINATION: US abdomen limited EXAM DATE: 08/21/2021 08:50 INDICATION: R10.11 - Right upper quadrant pain . TECHNIQUE: Multiple grayscale and Doppler images of the abdomen right upper quadrant were obtained (b y a technologist who performed the scan) and subsequently reviewed. Comparison is made to prior exami nation from 11/12/2017. FINDINGS: The pancreatic head and body are normal in appearance. The pancreatic tail is not visualized. The l iver has normal echogenicity and contour. There is a homogeneously hyperechoic right liver lobe aden on measuring 2 cm, centrally located. This is not definitely seen on prior examination. Could be foca l hepatic steatosis or hemangioma but ultrasound is nonspecific. There is no evidence of intrahepati c biliary duct dilation. Portal venous flow was seen in the hepatopedal, normal direction and has no rmal Doppler waveform. No right-sided hydronephrosis. Common bile duct measures 3 mm, which is normal. Gallbladder is contracted with multiple small gallst ones inside. No pericholecystic fluid or gallbladder wall thickening. Technologist performing exam re [facility] patient did not demonstrate sonographic Tran's sign. Please note that this sign is less reli able in patients who have received pain medication. IMPRESSION: Small nonspecific liver lesion, most likely benign given appearance and patient's age, bu t ultrasound is nonspecific. MRI abdomen examination without and with contrast is more specific. Reviewed, dictated and finalized at location B. L ENGINEERING INTERN IMPRESSION: Small nonspecific liver lesion, most likely benign given appearance and patient's age, but ultrasound is nonspecific. MRI abdomen examination wit hout and with contrast is more specific.
== END 2021-08-21 08:10 | disposition home or self-care (01) ==
LOC: ANHIMG 08:13
PROVIDERS: PCP Internal Medicine; Visit Provider Nurse Practitioner
DX: R10.11 Right upper quadrant pain (principal); K76.89 Other specified diseases of liver
CPT/HCPCS: 76705

== ENCOUNTER 2021-08-24 07:40 | Outpatient (CLI) | payer BC, SELFPAY ==
--- NOTE | ~2021-08-24 | NM_ITS ---
EXAMINATION: MO hepatobiliary wo pharm EXAM DATE: 08/24/2021 11:59 INDICATION: R10.11 - Right upper quadrant pain TECHNIQUE: 5 mCi Tc-99m mebrofenin (Choletec) was administered intravenously. Scintigraphic images o f the abdomen were obtained for one hour. At the 1 hour time point, 1.5 mcg sincalide (Kinevac) was a dministered by slow intravenous infusion, and imaging was continued for 30 minutes. Gallbladder eject ion fraction was calculated by the technologist. Correlation is made to right upper quadrant sonogram 08/21/2021. Correlation was made with hepatobiliary scan from 10/27/2017. FINDINGS: There is normal clearance of radiotracer from the blood pool. There is homogeneous tracer u ptake by the liver. Small bowel activity identified at 30 minute image. No definite gallbladder activ ity identified at 1 hour, 1 hour and 30 minutes, or delayed 4 hour image. Please note that in 2018 a normal ejection fraction of 69% was demonstrated. On recent ultrasound there were small gallstones within complete contracted gallbladder. No sonograph ic Tran's sign was demonstrated. IMPRESSION: Absent gallbladder activity which may indicate gallbladder dysfunction, acute or chronic cholecystitis. Reviewed, dictated and finalized at location B. DATA DEVELOPER IMPRESSION: Absent gallbladder activity which may indicate gallbladder dysfunc tion, acute or chronic cholecystitis.
== END 2021-08-24 07:41 | disposition home or self-care (01) ==
LOC: ANHIMG 07:43
PROVIDERS: PCP Internal Medicine; Visit Provider Nurse Practitioner
DX: R10.11 Right upper quadrant pain (principal)
CPT/HCPCS: 78226; A9537

== ENCOUNTER 2021-09-12 09:45 | Outpatient (CLI) | payer BC, SELFPAY ==
[2021-09-12 10:04] LABS: Basophils Percent Auto 0.8 % (0.2-1.2); Eosinophils Absolute Auto 0.1 K/mm3 (0-0.3); Eosinophils Percent Auto 1.6 % (0-4.4); Hematocrit 43.9 % (37.0-47.0); Hemoglobin 14.6 g/dL (12.0-15.0); Immature Granulocyte Absolute 0.01 K/mm3 (0.00-0.031); Immature Granulocyte Percent A 0.2 % (0-0.5); Lymphocytes Absolute Auto 1.32 K/mm3 (0.9-3.2); Lymphocytes Percent Auto 26.5 % (18.3-44.2); Mean Corpuscular HGB Conc 33.3 g/dl (32-36); Mean Corpuscular Hemoglobin 29.9 pg (26-34); Mean Corpuscular Volume 89.8 fl (80-100); Mean Platelet Volume 9.9 fl (7.4-10.4); Monocytes Absolute Auto 0.4 K/mm3 (0.1-0.6); Monocytes Percent Auto 8.2 % (2.6-8.5); Neutrophils Absolute Auto 3.1 K/mm3 (1.3-6.7); Neutrophils Percent Auto 62.7 % (45.5-73.1); Platelet Count Result 350 k/mm3 (150-375); Red Blood Count 4.89 M/mm3 (4.2-5.4); Red Cell Distribution Width 12.5 % (11.5-14.5)
[2021-09-12 10:22] LABS: Alanine Aminotransferase 517 U/L (4-35); Albumin Level 4.4 g/dL (3.5-5.1); Alkaline Phosphatase 283 U/L (38-126); Amylase 68 U/L (30-110); Anion Gap 9 mmol/L (8-16); Aspartate Amino Transferase 366 U/L (14-36); Blood Urea Nitrogen 14 mg/dL (7-17); Calcium 9.4 mg/dL (8.4-10.2); Carbon Dioxide 26 mmol/L (22-30); Chloride 103 mmol/L (98-107); Estimated Glomerular Filt Rate > 60; Glucose 102 mg/dL (65-110); Lipase 80 U/L (23-300); Potassium 4.2 mmol/L (3.4-5.0); Sodium 138 mmol/L (137-145)
== END 2021-09-12 09:46 | disposition home or self-care (01) ==
LOC: ANHSURGERY 09:49
PROVIDERS: PCP Internal Medicine; Visit Provider Surgery
DX: K80.00 Calculus of gallbladder with acute cholecystitis without obstruction (principal); Z01.818 Encounter for other preprocedural examination
CPT/HCPCS: 36415; 80053; 82150; 83690; 85025

== ENCOUNTER 2021-09-13 00:35 | Day surgery (SDC) | payer BC, SELFPAY ==
[2021-09-11 10:56] VITALS: BMI 40.6
--- NOTE | 2021-09-11 11:08 | PC.NURSE ---
Report to the Outpatient Waiting Room, entrance under the green pavilion located off [facility], at time 10:30 on date 09/13/21. OR Time: 12:30. - You will be asked a series of questions to screen for COVID 19 for your protection. - A mask is required within the hospital. - No visitors are allowed at this time. Preoperative COVID Testing Requirements: No COVID Test needed if: (proof is required; if not received patient will have Rapid Test prior to entry) - Patient has received COVID Vaccine at least 14 days prior to procedure date or - Patient has positive COVID test result within last 90 days of surgery date. COVID Test needed if above criteria is not met Patients may have clear liquids (water, carbonated beverages, clear teas, apple juice) until 3 hours prior to surgery (9:30) with a maximum of 20 ounces. - No food from midnight until time of surgery Take the following medications with a SIP of water the morning of surgery: CONTROL PILL Medications to discontinue per physician: N/A Date to take last dose: N/A Please no make-up, nail bhutanese, hairspray, perfume, deodorant, or body powder the day of surgery. No jewelry (including any body piercings) or valuables the day of surgery, leave them at home. Please take a shower or bath the night before, or the morning of, surgery with an antibacterial soap. Wear comfortable, loose fitting clothing. HIBICLENS SHOWER - Jewelry must be removed prior to entering the operating room. Rings and piercings that are not removed may be cut off. - The hospital will not accept responsibility for valuables. - Please leave all valuables, including medications, at home the day of surgery. If you are going home after surgery, a licensed ups driver must drive you home. - NO public transportation without another adult. - We recommend that an adult stay with you for 24 hours following discharge. - We also recommend that you do not drive, make important decision, drink alcoholic beverages, or take any drugs that were not prescribed by your health care provider for at least 24 hours after your discharge time. Follow any additional instructions given to you from your surgeon. Telephone instructions given to PRERNA OROZCO and asked if any additional questions and then verbalized understanding. Patient advised to call surgeon office or pre surgery nurse liaison [phone] if any additional questions.
[2021-09-13] VITALS (13 sets, daily range): BP systolic 123–159; BP diastolic 64–86; PULSE 70–95; RESP 15–20; TEMP 36.1–36.9; O2SAT 95–100
--- NOTE | ~2021-09-13 | XR_ITS ---
EXAMINATION: XR cholangiogram surg 1st inj EXAM DATE: 09/13/2021 13:53 INDICATION: Possible Stones, Iocs TECHNIQUE: Multiples Cine fluoroscopic images were obtained during injection of the cystic duct duri ng laparoscopic cholecystectomy. Procedure performed by Dr. Tex Nation MD on 09/13/2021 13:5 3, radiologist was not present. Total fluoroscopic time of 19 seconds The DAP for this procedure w as 0.23 mGym2. A total of 122 images sent to PACS from the exam. There is no prior study for compar umm. FINDINGS: The cystic duct has been injected. There are no intraluminal filling defects within or st rictures of the common bile duct or opacified hepatic ducts. Forward flow of contrast confirmed into the duodenum. Common bile duct and proper hepatic duct are dilated. IMPRESSION: Dilated CBD, proper hepatic ducts without filling defects. Reviewed, dictated and finalized at location B. N LEADER
[2021-09-13] MEDS: ACETAMINOPHEN 500 MG TABLET 1000 MG PO (10:50)
[2021-09-13] MEDS: LACTATED RINGERS 1,000 ML 30 ML IV CONT ×2 (11:20→15:41)
[2021-09-13] MEDS: KETOROLAC 15 MG/ML VIAL (*BKC) IV PUSH (11:33)
[2021-09-13 11:40] LABS: Alanine Aminotransferase 500 U/L (4-35); Albumin Level 4.3 g/dL (3.5-5.1); Alkaline Phosphatase 284 U/L (38-126); Aspartate Amino Transferase 285 U/L (14-36); Bilirubin,Total 1.8 mg/dL (0.2-1.3)
--- NOTE | 2021-09-13 11:44 | WPDHPUPDATE1 ---
History and Physical Update Update Date/Time: 09/13/21 11:44 History and Physical has been reviewed, including an updated exam of the patient. There are are changes in the patient's condition. Pt/had an exacerbation of her GB symptoms 3 days ago. Out pt. labs showed and increase in LFT's, so a hepatic profile was repeated today and showed they were coming down again but not yet normal. So, will try hard to do an IOC today during surgery to R/O CBD stones. Risks, benefits, and alternatives have been discussed and questions answered. Patient agrees to proceed with procedure.
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
[2021-09-13] MEDS: SCOPOLAMINE 1.5 MG PATCH TRANSDERM (12:10)
[2021-09-13] MEDS: ceFAZolin 2 GM/D5W 50 ML 2 GM/50 ML BAG IVPB (12:43)
[2021-09-13] MEDS: BUPIVACAINE/EPINEPHRINE 0.5% 30 ML VIAL INFILTRATE (13:20)
--- NOTE | 2021-09-13 14:49 | W.PM.PROC2 ---
Procedure Note - Detailed Date of Procedure 09/13/21 Pre-op Diagnosis Chronic cholecystitis with cholelithiasis Post-op Diagnosis same Procedure Performed Laparoscopic cholecystectomy with intraoperative cholangiogram Surgeon Tex Nation MD Research Epidemiologist Tiarra GAY.OR Fox Raiser Anesthesia general Indications Patient is having intermittent episodes of epigastric and right upper quadrant pain. Also after recent episode 3 days ago labs were checked and her bilirubin was elevated along with some of the other liver function tests. The risks benefits possible complications of the procedure including bleeding infection possible injury to intra-abdominal organs possible need for open cholecystectomy possible need for ERCP were discussed with the patient and she seems understand wished to proceed. Findings Fairly normal appearing gallbladder but palpable stones within it both with the laparoscopic instrument and following the procedure with my fingers. There was a long cystic duct by cholangiogram but no filling defects within the bile duct system. Description of Procedure Procedure Details: Patient was seen preoperatively in the holding area and risks, benefits and alternatives confirmed. Patient was taken to the operating room and general anesthesia was induced. A time out was then preformed with the surgery team confirming patient and site of surgery. The abdomen was prepped and draped in the usual sterile fashion. Incision was made just below the umbilicus. Two stay sutures of O- Vicryl were used to elevate the mid-line fascia beneath the umbilicus and a small incision was made under direct vision. The peritoneum was entered. The 12 mm Muller cannula was introduced under direct vision. First under low flow and then under high flow the abdomen was insufflated with carbon dioxide never exceeding a pressure of 14. Three 5 mm trocars were then introduced under direct vision. The following trocars were introduced under direct vision: a mm in the epigastrium and two 5 mm trocars along the right costal margin. There were some thin adhesions of the omentum to the underside of the gallbladder and these were taken down with blunt and sharp dissection. Bovie cautery was used for hemostasis. The gall bladder was grasped and the cystic duct and artery were dissected free and I carefully identified a window of safety with only two other structures in the area being the cystic duct and the cystic artery. I then used a 5 mm endo-clip collet making machine operator to place 2 clips on the patient's side 1 on the gallbladder side on the cystic artery and just 1 clip on the gallbladder side of the cystic duct. A small hole was made in the cystic duct with endoshears and a cholagio-cath introduced. This was held in place with a single 5 mm clip. A cholangiogram was obtained revealing free flow into the cystic duct, common bile duct, common hepatic, right and left hepatic ducts with free flow into the duodenum with no filling defects in the intra nor extrahepatic biliary tree and mild dilation of the CBD and proper hepatic duct. The cystic duct was also noted to be quite long. The catheter was removed and the cystic duct was clipped with a 5 mm endoclip-collet making machine operator placing 2 clips on the patient's side of the cystic duct. The cystic duct was then transected. The cystic artery was also transected at this point. The gall bladder was removed using electrocautery and then removed using a large 10 mm grasper via the umbilical incision. The trocars were removed visualizing hemostasis and the remaining gas evacuated. The large trocar site at the umbilicus was closed with an 0 Vicryl figure of 8 suture. The 2 stay sutures mentioned above on either side of the fascia were also tied together to help approximate this midline fascia. Further local anesthetic was placed into each incision for postop pain control. The skin incisions were closed with subcuticular suture of 4-0 Monocryl. Surgical glue then was applied
[2021-09-13] MEDS: ONDANSETRON INJ 4 MG/2 ML VIAL IV PUSH (14:50)
[2021-09-13] MEDS: fentaNYL CITRATE INJ (*CRX) 100 MCG/2 ML VIAL 25 MCG IV PUSH ×8 (14:50→15:40)
[2021-09-13] MEDS: diphenhydrAMINE HCl INJ 50 MG/ML VIAL 25 MG IV PUSH ×2 (15:10→15:35)
[2021-09-13] MEDS: HYDROmorphone HCL INJ (*CRX) 1 MG/ML SYR 0.5 MG IV PUSH ×4 (16:06→17:08)
== END 2021-09-13 17:40 | disposition home or self-care (01) ==
PROVIDERS: PCP Internal Medicine; Visit Provider Surgery
PROC: 0FT44ZZ Resection of Gallbladder, Percutaneous Endoscopic Approach (ICD-10-PCS; CPT 47562; principal; 2021-09-13 12:30)
DX: K80.10 Calculus of gallbladder with chronic cholecystitis without obstruction (principal); K21.9 Gastro-esophageal reflux disease without esophagitis; F41.8 Other specified anxiety disorders; E66.01 Morbid (severe) obesity due to excess calories; Z68.41 Body mass index [BMI] 40.0-44.9, adult
CPT/HCPCS: 47563; 36415; 74300; 80076; 88304; A9270; J0330; J0690; J1100; J1170; J1200; J1885; J2250; J2405; J2704; J3010; J7030; J7120; Q9966

== ENCOUNTER 2021-09-25 07:41 | Outpatient (CLI) | payer BC, SELFPAY ==
[2021-09-25 08:12] LABS: Alanine Aminotransferase 76 U/L (4-35); Albumin Level 4.6 g/dL (3.5-5.1); Alkaline Phosphatase 131 U/L (38-126); Anion Gap 7 mmol/L (8-16); Aspartate Amino Transferase 33 U/L (14-36); Bilirubin,Total 0.6 mg/dL (0.2-1.3); Blood Urea Nitrogen 20 mg/dL (7-17); Calcium 9.5 mg/dL (8.4-10.2); Carbon Dioxide 26 mmol/L (22-30); Chloride 106 mmol/L (98-107); Estimated Glomerular Filt Rate > 60; Glucose 101 mg/dL (65-110); Potassium 4.6 mmol/L (3.4-5.0); Sodium 139 mmol/L (137-145)
== END 2021-09-25 07:42 | disposition home or self-care (01) ==
PROVIDERS: PCP Internal Medicine; Visit Provider Surgery
DX: K80.10 Calculus of gallbladder with chronic cholecystitis without obstruction (principal)
CPT/HCPCS: 36415; 80053

== ENCOUNTER 2021-09-27 08:57 | Outpatient (CLI) | payer BC, SELFPAY ==
[2021-09-27 09:58] LABS: Cholesterol 258 mg/dL (0-200); HDL Direct 46 mg/dL; Triglycerides 157 mg/dL (<150)
[2021-09-27 10:11] LABS: LDL Cholesterol Direct 169 mg/dL
== END 2021-09-27 08:58 | disposition home or self-care (01) ==
LOC: ANHLAB 08:58
PROVIDERS: PCP Internal Medicine; Visit Provider Surgery
DX: E78.00 Pure hypercholesterolemia, unspecified (principal); K82.4 Cholesterolosis of gallbladder
CPT/HCPCS: 36415; 80061

== ENCOUNTER 2021-10-06 12:49 | Outpatient (CLI) | payer BC, SELFPAY ==
--- NOTE | ~2021-10-06 | MR_ITS ---
EXAMINATION: MR abdomen wo/w con DATE: 10/06/2021 14:05 INDICATION: Liver disease, unspecified. Liver mass. TECHNIQUE: Magnetic resonance imaging (MRI) of the abdomen was performed without and with 18 mL Multi Ladarius intravenous contrast. Sequences included coronal T2-weighted FS FSE, coronal and axial FS FIEST A, axial T2-weighted FSE, coronal LAVA-flex, axial STIR FSE, axial DWI, axial dual-echo T1-weighted F SPGR, and axial LAVA. Postcontrast sequences included coronal LAVA-flex and a time course of axial LA VA. COMPARISON: Abdomen ultrasound 08/21/2021. FINDINGS: There is diffuse hepatic steatosis, focally worst in a 2.1 cm area in segment VIII of the liver corre lating with the ultrasound abnormality. The gallbladder is absent. The spleen, pancreas, adrenal glan ds, and kidneys are normal. There are no dilated loops of bowel. There are no pathologically enlarged lymph nodes. There is no free intraperitoneal fluid. IMPRESSION: 1. Inhomogeneous hepatic steatosis, which correlates with the ultrasound finding. Reviewed, dictated and finalized at location A. N DRIER OPERATOR IMPRESSION: 1. Inhomogeneous hepatic steatosis, which correlates with the ultrasound findin g.
== END 2021-10-06 12:50 | disposition home or self-care (01) ==
LOC: ANHIMG 12:53
PROVIDERS: PCP Internal Medicine; Visit Provider Nurse Practitioner
DX: K76.9 Liver disease, unspecified (principal)
CPT/HCPCS: 74183; A9577

== ENCOUNTER 2022-04-04 07:03 | Outpatient (CLI) | payer OTHER, SELFPAY ==
[2022-04-04 07:35] LABS: Alanine Aminotransferase 32 U/L (6-35); Albumin Level 4.4 g/dL (3.5-5.1); Alkaline Phosphatase 78 U/L (38-126); Anion Gap 9 mmol/L (8-16); Aspartate Amino Transferase 29 U/L (14-36); Bilirubin,Total 0.3 mg/dL (0.2-1.3); Blood Urea Nitrogen 22 mg/dL (7-17); Calcium 9.4 mg/dL (8.4-10.2); Carbon Dioxide 30 mmol/L (22-30); Chloride 101 mmol/L (98-107); Cholesterol 231 mg/dL (0-200); Estimated Glomerular Filt Rate > 60; Glucose 96 mg/dL (65-110); HDL Direct 49 mg/dL; Potassium 4.7 mmol/L (3.4-5.0); Sodium 140 mmol/L (137-145); Triglycerides 106 mg/dL (<150)
[2022-04-04 07:46] LABS: LDL Cholesterol Direct 143 mg/dL
== END 2022-04-04 07:04 | disposition home or self-care (01) ==
PROVIDERS: PCP Internal Medicine; Visit Provider Nurse Practitioner
DX: E78.00 Pure hypercholesterolemia, unspecified (principal); R53.83 Other fatigue; R74.01 Elevation of levels of liver transaminase levels
CPT/HCPCS: 36415; 80053; 80061; 84443

== ENCOUNTER 2022-04-24 15:00 | Outpatient (CLI) | payer OTHER, SELFPAY ==
[2022-04-24 15:39] LABS: Beta HCG Quantitative 10.51 mIU/ML
== END 2022-04-24 15:01 | disposition home or self-care (01) ==
LOC: ANHLAB 15:00
PROVIDERS: PCP Internal Medicine; Visit Provider Obstetrics & Gynecology
DX: N92.6 Irregular menstruation, unspecified (principal)
CPT/HCPCS: 36415; 84702

== ENCOUNTER 2022-04-30 14:23 | Outpatient (CLI) | payer OTHER, SELFPAY ==
[2022-04-30 15:25] LABS: Beta HCG Quantitative 169.47 mIU/ML
== END 2022-04-30 14:24 | disposition home or self-care (01) ==
LOC: ANHLAB 14:25
PROVIDERS: PCP Internal Medicine; Visit Provider Obstetrics & Gynecology
DX: N92.6 Irregular menstruation, unspecified (principal)
CPT/HCPCS: 36415; 84702

== ENCOUNTER 2022-05-02 14:42 | Outpatient (CLI) | payer OTHER, SELFPAY | END 2022-05-02 14:43 | disposition home or self-care (01) | PROVIDERS: PCP Internal Medicine; Visit Provider Obstetrics & Gynecology | DX: N92.6 Irregular menstruation, unspecified (principal) | CPT/HCPCS: 36415; 84702 ==

== ENCOUNTER 2022-06-05 08:23 | Outpatient (CLI) | payer OTHER, SELFPAY ==
[2022-06-05 10:07] LABS: Basophils Percent Auto 0.2 % (0.2-1.2); Eosinophils Percent Auto 0.8 % (0-4.4); Hematocrit 40.5 % (37.0-47.0); Hemoglobin 13.4 g/dL (12.0-15.0); Immature Granulocyte Absolute 0.01 K/mm3 (0.00-0.031); Immature Granulocyte Percent A 0.2 % (0-0.5); Lymphocytes Absolute Auto 1.35 K/mm3 (0.9-3.2); Lymphocytes Percent Auto 25.7 % (18.3-44.2); Mean Corpuscular HGB Conc 33.1 g/dl (32-36); Mean Corpuscular Hemoglobin 29.6 pg (26-34); Mean Corpuscular Volume 89.6 fl (80-100); Mean Platelet Volume 9.9 fl (7.4-10.4); Monocytes Absolute Auto 0.4 K/mm3 (0.1-0.6); Monocytes Percent Auto 7.4 % (2.6-8.5); Neutrophils Absolute Auto 3.5 K/mm3 (1.3-6.7); Neutrophils Percent Auto 65.7 % (45.5-73.1); Platelet Count Result 277 k/mm3 (150-375); Red Blood Count 4.52 M/mm3 (4.2-5.4); Red Cell Distribution Width 12.6 % (11.5-14.5); White Blood Count 5.3 K/mm3 (4.5-10.0)
[2022-06-05 10:08] LABS: Glucose 1 Hour PP 50gm Dose 102 mg/dL
[2022-06-05 10:49] LABS: HIV 1/2 Ab P24 Ag Result Negative (Negative)
[2022-06-05 11:39] LABS: Hepatitis B Surface Antigen Negative (Negative); Rubella IgG Antibody 13.5 IU/ML
[2022-06-06 06:49] LABS: Rapid Plasma Reagin Non-Reactive (NonReactive)
[2022-06-09 12:25] LABS: CMV IgG Antibody <0.60 U/mL (<0.60)
== END 2022-06-05 08:24 | disposition home or self-care (01) ==
LOC: ANHLAB 08:25
PROVIDERS: PCP Internal Medicine; Visit Provider Obstetrics & Gynecology
DX: N94.89 Other specified conditions associated with female genital organs and menstrual cycle (principal); E66.9 Obesity, unspecified
CPT/HCPCS: 36415; 82947; 84702; 85025; 86592; 86644; 86703; 86747; 86762; 86787; 86850; 86900; 86901; 87086; 87340; G0432

== ENCOUNTER → 2022-11-04 09:52 | Outpatient (CLI) | payer OTHER, SELFPAY ==
--- NOTE | ~2022-11-04 | US_ITS ---
EXAMINATION: US OB follow up DATE: 11/04/2022 10:43 INDICATION: Low-lying placenta, third trimester TECHNIQUE: Real-time ultrasound of the pelvis was performed. The interpreting radiologist was not pre sent for the study. COMPARISON: 09/27/2022 FINDINGS: There is a single living fetus in breech presentation. The placenta is posterior and 3.9 cm from the internal cervical os. The cervical length is 5.2 cm. cardiac activity and movem ent are noted. heart rate is 137 beats per minute (bpm). The amniotic fluid index is 20.7 cm wh ich is normal (normal range: 8.8 cm to 23.8 cm). The following biometric data were obtained: Biparietal diameter (BPD): 8.1 cm; head circumference (HC): 30.3 cm; abdominal circumference (AC): 27 .3 cm; femur length (FL): 6.3 cm. These measurements are concordant. Estimated weight is 1918 g +/- 287 g, which correlates with the 49th percentile when 12/31/2022 is used as estimated date of delivery. As single measurements, these parameters are each equal to the following estimated gestational ages w ith ranges of +/- 2 standard deviations: BPD: 32 weeks 5 days ( 29 weeks 4 days - 35 weeks 5 days). HC: 33 weeks 5 days ( 30 weeks 5 days - 36 weeks 4 days). AC: 31 weeks 3 days ( 28 weeks 3 days - 34 weeks 3 days). FL: 32 weeks 5 days ( 29 weeks 6 days - 35 weeks 5 days). estimated gestational age based solely on measurements from this exam is 32 weeks 5 days +/- 2 weeks 2 days. IMPRESSION: 1. Single living fetus in breech presentation. 2. Posterior placenta 3.9 cm from the internal cervical os. 3. Estimated weight is 1918 g +/- 287 g, which correlates with the 49th percentile when 01/01/20 23 is used as estimated date of delivery. Reviewed, dictated and finalized at location B. IMPRESSION: 1. Single living fetus in breech presentation. 2. Posterior placenta 3.9 cm from the internal cervical os. 3. Estimated weight is 1918 g +/- 287 g, which correlates with the 49th p ercentile when 12/31/2022 is used as estimated date of delivery.
== END ==
PROVIDERS: PCP Student in an Organized Health Care Education/Training Program; Visit Provider Student in an Organized Health Care Education/Training Program
DX: O44.43 Low lying placenta NOS or without hemorrhage, third trimester (principal); Z3A.32 32 weeks gestation of pregnancy
CPT/HCPCS: 76816

== ENCOUNTER 2022-11-23 10:20 | Outpatient (RCR) | payer OTHER, SELFPAY ==
[2022-11-23 11:00] VITALS: BP 119/68; PULSE 98
== END 2023-02-21 23:59 | disposition home or self-care (01) ==
LOC: ANHOBOP 10:20
PROVIDERS: PCP Student in an Organized Health Care Education/Training Program; Visit Provider Obstetrics & Gynecology
DX: O36.8130 Decreased fetal movements, third trimester, not applicable or unspecified (principal); Z3A.34 34 weeks gestation of pregnancy
CPT/HCPCS: 59025

== ENCOUNTER 2022-12-11 10:49 | Outpatient (CLI) | payer OTHER, SELFPAY ==
[2022-12-11 11:13] VITALS: BP 127/77; PULSE 113
[2022-12-11 11:15] VITALS: BP 127/77; BP 128/73; PULSE 113; PULSE 115
[2022-12-11 11:22] LABS: Basophils Percent Auto 0.2 % (0.2-1.2); Eosinophils Percent Auto 0.3 % (0-4.4); Hematocrit 37.5 % (37.0-47.0); Hemoglobin 12.2 g/dL (12.0-15.0); Immature Granulocyte Absolute 0.04 K/mm3 (0.00-0.031); Immature Granulocyte Percent A 0.4 % (0-0.5); Lymphocytes Absolute Auto 1.07 K/mm3 (0.9-3.2); Lymphocytes Percent Auto 11.7 % (18.3-44.2); Mean Corpuscular HGB Conc 32.5 g/dl (32-36); Mean Corpuscular Volume 89.1 fl (80-100); Mean Platelet Volume 10.6 fl (7.4-10.4); Monocytes Absolute Auto 0.9 K/mm3 (0.1-0.6); Monocytes Percent Auto 10.2 % (2.6-8.5); Neutrophils Percent Auto 77.2 % (45.5-73.1); Platelet Count Result 263 k/mm3 (150-375); Red Blood Count 4.21 M/mm3 (4.2-5.4); Red Cell Distribution Width 12.9 % (11.5-14.5); White Blood Count 9.1 K/mm3 (4.5-10.0)
[2022-12-11 11:29] LABS: Alanine Aminotransferase 33 U/L (6-35); Albumin Level 3.8 g/dL (3.5-5.1); Alkaline Phosphatase 176 U/L (38-126); Anion Gap 7 mmol/L (8-16); Aspartate Amino Transferase 26 U/L (14-36); Bilirubin,Total 0.6 mg/dL (0.2-1.3); Blood Urea Nitrogen 5 mg/dL (7-17); Calcium 9.4 mg/dL (8.4-10.2); Carbon Dioxide 22 mmol/L (22-30); Chloride 106 mmol/L (98-107); Estimated Glomerular Filt Rate > 60; Glucose 84 mg/dL (65-110); Potassium 3.8 mmol/L (3.4-5.0); Sodium 135 mmol/L (137-145); Uric Acid 4.1 mg/dL (2.5-7.5)
[2022-12-11 11:30] VITALS: BP 133/73; PULSE 120
[2022-12-11 11:34] LABS: Appearance Urine Cloudy (Clear); Bacteria Urine None Seen /hpf; Bilirubin Urine Negative (Negative); Blood Urine Negative (Negative); Color Urine Dark Yellow (Yellow); Glucose Urine UA Negative (Negative); Ketones Urine Negative (Negative); Leukocyte Esterase Ur Trace LEU/UL (NEGATIVE); Nitrate Urine Negative (Negative); Non Pathogenic Casts 0-2; Protein Urine Trace mg/dL (Negative); Specific Grav Ur 1.017 (1.001-1.035); Squamous Epithelial Cell Urine Few /hpf (Few); Urobilinogen Urine 0.2 mg/dL (<2.0); WBC Urine 0-5 /hpf (0-3); pH Urine 7.5 (5.0-9.0)
[2022-12-11 11:35] LABS: Add Urine Microscopic? YES; Creatinine Urine 98.4 mg/dL; Total Protein Urine Random 28 mg/dL; Ur Ttl Prot Creatinine Ratio 0.28 mg/mg (0-0.20)
[2022-12-11 11:45] VITALS: BP 130/72; PULSE 124
[2022-12-11 11:53] VITALS: BP 130/72; PULSE 114
== END 2022-12-11 11:55 | disposition home or self-care (01) ==
LOC: ANHOBOP 10:54 → ANHOBPP 10:54
PROVIDERS: Visit Provider Obstetrics & Gynecology
DX: O13.9 Gestational [pregnancy-induced] hypertension without significant proteinuria, unspecified trimester (principal); Z3A.00 Weeks of gestation of pregnancy not specified
CPT/HCPCS: 36415; 59025; 80053; 81001; 82570; 84156; 84550; 85025; 87086; 99199

== ENCOUNTER 2022-12-25 08:21 | Outpatient (CLI) | payer OTHER, SELFPAY ==
[2022-12-25 08:41] LABS: Hematocrit 35.1 % (37.0-47.0); Hemoglobin 11.5 g/dL (12.0-15.0); Mean Corpuscular HGB Conc 32.8 g/dl (32-36); Mean Corpuscular Hemoglobin 29.6 pg (26-34); Mean Corpuscular Volume 90.2 fl (80-100); Mean Platelet Volume 10.8 fl (7.4-10.4); Platelet Count Result 237 k/mm3 (150-375); Red Blood Count 3.89 M/mm3 (4.2-5.4); Red Cell Distribution Width 13.2 % (11.5-14.5); White Blood Count 5.4 K/mm3 (4.5-10.0)
[2022-12-26 08:53] LABS: Rapid Plasma Reagin Non-Reactive (NonReactive)
== END 2022-12-25 08:22 | disposition home or self-care (01) ==
PROVIDERS: Visit Provider Obstetrics & Gynecology
DX: Z34.93 Encounter for supervision of normal pregnancy, unspecified, third trimester (principal); Z3A.00 Weeks of gestation of pregnancy not specified
CPT/HCPCS: 36415; 85027; 86592; 86850; 86900; 86901

== ENCOUNTER 2022-12-26 09:52 | Inpatient (IN) | payer OTHER, SELFPAY ==
[2022-12-26] VITALS (43 sets, daily range): BP systolic 96–137; BP diastolic 46–82; PULSE 67–104; RESP 14–18; TEMP 36.1–36.8; O2SAT 96–100; BMI 41.8
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
--- NOTE | 2022-12-26 10:38 | LDADM ---
This patient, Saskia Long, was admitted to Labor/Delivery/Recovery 120 on 12/26/22 at 09:52. Plans for labor, pain management and were discussed with patient. Patient/family oriented to hospital policies and general routines including ID bracelet, bed and alarms, visiting hours, pain management, procedures, bathroom and other care routines, personal items, smoking policy, room service/diet and guest tray routines, infant security routines, and visiting hours. Patient/Family are encouraged to report perceived risks to care and to ask questions if they do not understand what they are told or what they should do. See OBIX for further documentation.
[2022-12-26] MEDS: LACTATED RINGERS 1,000 ML 125 ML IV CONT (10:49)
--- NOTE | 2022-12-26 11:14 | WPDHPUPDATE1 ---
History and Physical Update Update Date/Time: 12/26/22 11:14 History and Physical has been reviewed, including an updated exam of the patient. There are NO changes in the patient's condition. Risks, benefits, and alternatives have been discussed and questions answered. Patient agrees to proceed with procedure.
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
[2022-12-26] MEDS: ceFAZolin 2 GM/D5W 50 ML 2 GM/50 ML BAG IVPB (11:57)
--- NOTE | 2022-12-26 13:10 | PM.OBPRVD ---
OB - Delivery Note Procedure Delivery date: 12/26/22 Procedure: Procedures Operation Date: 12/26/22 12:00 <No data on this case meets the specified criteria> Events: Previous Delivery Route of delivery: (and bilateral salpingectomy) Quantitative Blood Loss (ml): 250 Anesthesia type: Spinal Disposition: PACU Baby Date of : 12/26/22 Time of : 12:26 Weeks of gestation at delivery: 39 (.2) gender: Female Weight (pounds): 7 Weight (ounces): 5 presentation: vertex Placenta delivery description: Expressed Cord Vessel Description: 3 Vessels and Delayed Cord Clamping score one minute: 8 score five minutes: 9 Narrative: Saskia was counseled on all risks and benefits in detail. She was taken to the operating room where spinal was placed. She was then prepped and draped in the normal sterile fashion. She received 2g Ancef and a time out was performed. A Pfannenstiel incision was made in the skin and carried down to the underlying fascia. The fascia was nicked on either side of the midline and the fascial incision was extended laterally and superiorly using curved Guillen scissors. The fascia was then elevated using Cliff clamps and the underlying rectus muscles were dissected off the fascia, superiorly and inferiorly. The rectus muscles were then in the midline and the peritoneum was entered bluntly. Once adequate exposure was obtained, a Mobius self retractor was placed within the abdomen. A low transverse incision was made on the lower uterine segment and clear fluid was noted. The occiput was brought to the hysterotomy and the head was easily delivered. The shoulders and body then followed without complications. The had spontaneous cry and delayed cord clamping was performed. The cord was clamped and cut and the was handed off to the awaiting pediatric nurse. A segment of the cord was collected for cord gases. The remaining cord blood was collected for typing. With pitocin infusing, the placenta delivered with gentle traction on the cord without complications. The uterus was then cleared out of all clots and debris using a clean, moist lap. The hysterotomy was then repaired in a running, interlocking fashion using 0 Vicryl. A second layer imbricating suture was then made using 0 Vicryl. The hysterotomy was found to be hemostatic and good uterine tone was noted. The bilateral adnexa were examined and found to be normal. The left fallopian tubes was elevated using Meli clamps. Using the ligasure, the mesosalpinx was serially clamped, coagulated, and transceted at the cornua. The tube was handed off. The same procedure was performed on the right side. Good hemostasis was noted. The pelvis was cleared of all clots and fluid. The Mobius retractor was removed from the abdomen. The peritoneum, muscle, and fascia were examined and made hemostatic with bovie cautery. The fascia was then repaired using a 0 Vicryl suture in a running fashion. The subcutaneous tissue was then irrigated and made hemostatic with bovie cautery. The subcutaneous tissue was then reapproximated using 2-0 Vicryl. The skin was then closed using 4-0 Monocryl in a running subcuticular fashion. A Mepilex dressing was then placed. Sponge, lap, needle, and instrument counts were correct at the end of the procedure x2. The patient tolerated the procedure well and was taken to recovery in a stable condition. [facility] Delivery Billing Delivery Delivery: Delivery Charge
[2022-12-26] MEDS: miSOPROStol 200 MCG TABLET 800 MCG (13:30)
[2022-12-26] MEDS: OXYTOCIN 30 UNITS/NS 500 ML 30 UNITS/500 ML BAG 125 UNITS IV CONT (14:10)
[2022-12-26] MEDS: MORPHINE SULFATE INJ (*CRX) 10 MG/ML AMP 2 MG IV PUSH ×2 (14:24→14:36)
[2022-12-26] MEDS: diphenhydrAMINE HCl INJ 50 MG/ML VIAL 25 MG IV PUSH (14:24)
--- NOTE | 2022-12-26 15:54 | OBPPTRN ---
1528-Patient transferred to post room #291 via stretcher. Support person present. Oriented to unit, room, information board, rooming in, admission packet and security measures. Patient verbalizes understanding.
[2022-12-26] MEDS: ONDANSETRON INJ 4 MG/2 ML VIAL IV PUSH (16:06)
[2022-12-26] MEDS: DEXTROSE 5%/0.45% SOD CHL 1,000 ML 125 ML IV CONT (18:55)
[2022-12-26] MEDS: KETOROLAC 30 MG/ML VIAL (*BKC) IV PUSH (18:55)
[2022-12-26] MEDS: LIDOCAINE 5% PATCH 1 PATCH TRANSDERM (19:42)
[2022-12-26] MEDS: PROCHLORPERAZINE EDISYLATE 10 MG/2 ML VIAL 5 MG IV PUSH (19:42)
[2022-12-27] MEDS: KETOROLAC 30 MG/ML VIAL (*BKC) IV PUSH (02:53)
[2022-12-27 03:00] VITALS: BP 110/57; PULSE 56; RESP 18; TEMP 36.8; O2SAT 95
[2022-12-27 05:32] LABS: Basophils Percent Auto 0.4 % (0.2-1.2); Eosinophils Percent Auto 0.1 % (0-4.4); Hematocrit 33.6 % (37.0-47.0); Hemoglobin 10.7 g/dL (12.0-15.0); Immature Granulocyte Absolute 0.03 K/mm3 (0.00-0.031); Immature Granulocyte Percent A 0.3 % (0-0.5); Lymphocytes Percent Auto 17.9 % (18.3-44.2); Mean Corpuscular HGB Conc 31.8 g/dl (32-36); Mean Corpuscular Volume 91.1 fl (80-100); Mean Platelet Volume 11.8 fl (7.4-10.4); Monocytes Absolute Auto 1.1 K/mm3 (0.1-0.6); Monocytes Percent Auto 10.3 % (2.6-8.5); Neutrophils Absolute Auto 7.6 K/mm3 (1.3-6.7); Platelet Count Result 263 k/mm3 (150-375); Red Blood Count 3.69 M/mm3 (4.2-5.4); Red Cell Distribution Width 13.1 % (11.5-14.5); White Blood Count 10.6 K/mm3 (4.5-10.0)
[2022-12-27 07:35] VITALS: BP 111/50; PULSE 75; RESP 16; TEMP 37.2; O2SAT 98
[2022-12-27] MEDS: DOCUSATE SODIUM 100 MG CAPSULE PO (08:04)
[2022-12-27] MEDS: MULTIVIT/MIN/PREN/FOL AC/IRON TABLET 1 TAB PO (08:04)
[2022-12-27] MEDS: HYDROcodone/acetaminophen (*CRX) 5-325 MG TABLET 1 TAB PO ×5 (08:05→22:40)
--- NOTE | 2022-12-27 08:50 | PM.OBPNVD ---
OB - PN: Subj Subjective Date/time seen: 12/27/22 08:50 Narrative: POD#1 Saskia reports doing well today. Her bleeding is doing better. Her pain is controlled. She is tolerating regular diet, voiding, passing gas, and ambulating without issues. She has already had a BM. She denies any issues with her incision. She is bottle feeding. She would like to go home tomorrow. OB - PN: Obj Data Labs 12/27/22 03:06 Labs: Laboratory Results - last 24 hr 12/27/22 03:06 WBC 10.6 H RBC 3.69 L Hgb 10.7 L Hct 33.6 L MCV 91.1 MCH 29.0 MCHC 31.8 L RDW 13.1 Plt Count 263 MPV 11.8 H Immature Gran % (Auto) 0.3 Neut % (Auto) 71.0 Lymph % (Auto) 17.9 L [place] % (Auto) 10.3 H Eos % (Auto) 0.1 Baso % (Auto) 0.4 Lymph # (Auto) 1.90 [place] # (Auto) 1.1 H Eos # (Auto) 0.0 Baso # (Auto) 0.0 Abs Immat Gran (auto) 0.03 Absolute Neuts (auto) 7.6 H Absolute Nucleated RBC 0.0 Nucleated RBC % 0.0 OB - PN A/P Assessment and Plan (1) S/P section: Code(s): Z98.891 - History of uterine scar from previous surgery Status: Acute (2) Status post bilateral salpingectomy: Code(s): Z90.79 - Acquired absence of other genital organ(s) Status: Acute Plan day: 1 Plan: routine care and discharge home (tomorrow) Comments: - Pelvic rest; take meds as prescribed - Incision care/no heavy lifting discussed - ER return precautions: fever, n/v/abd pain, bleeding, HTN - F/u 4wks. Time Spent With Patient Time: Total time spent is greater than 50% in coordination of care (as documented) at patient's floor/unit and/or counseling patient: Review of Systems Constitutional: Constitutional: Denies chills, Denies fever(s) and Denies headache(s) Eyes: Eyes: Denies change in vision ENT: Denies dizziness and Denies headache(s) Cardiovascular: Cardiovascular: Denies chest pain, Denies palpitations and Denies dyspnea Respiratory: Respiratory: Denies cough and Denies dyspnea Gastrointestinal: Gastrointestinal: Denies nausea and Denies vomiting Genitourinary: Comments: normal bleeding Neurologic: Denies dizziness and Denies headache(s) Endocrine: Endocrine: Denies palpitations Exam Const: General: cooperative, comfortable and no acute distress Orientation/consciousness: patient oriented x3 Resp: Effort & Inspection: normal respiratory effort Auscultation: clear to auscultation bilaterally Cardio: Rate: regular rate GI: Inspection: non-distended and incision (covered with clean dressing) GI Palp: Yes abdominal tenderness (appropriate) and Yes Soft to palpation Auscultation: normal bowel sounds : Other: fundus firm Skin: General skin exam: normal color Neuro: General: patient oriented x3 Extrem: General: normal to inspection Psych: Appearance: grossly normal Affect: normal affect Attitude: cooperative
[2022-12-27] MEDS: LIDOCAINE 5% PATCH 1 PATCH TRANSDERM ×2 (09:00→22:34)
[2022-12-27] MEDS: IBUPROFEN 600 MG TABLET PO ×3 (09:51→22:40)
[2022-12-27 11:50] VITALS: BP 127/51; PULSE 74; RESP 16; TEMP 36.9; O2SAT 97
--- NOTE | 2022-12-27 14:58 | WPDANLDPN2 ---
Anes-Prog Note L&D Date/Time: 12/27/22 14:58 Neuro status: Neuro function grossly intact. Vital Signs: Last Vital Signs Temp 36.9 C 12/27/22 11:50 Pulse 74 12/27/22 11:50 Resp 16 12/27/22 11:50 BP 127/51 L 12/27/22 11:50 Pulse Ox 97 12/27/22 11:50 O2 Del Method Room Air 12/27/22 03:00 Pain score (VAS): 0 I/O: Intake & Output 12/26/22 12/27/22 12/27/22 23:59 07:59 15:59 Intake Total 240 950 500 Output Total 650 900 Balance -410 50 500 Patient feedback: Patient satisfied with anesthetic care.
--- NOTE | 2022-12-27 14:58 | WPDANLDNPN2 ---
Anes-Prog Note L&D-Neuraxial Date/Time: 12/27/22 14:58 Patient feedback: Patient satisfied with post-operative pain management.
[2022-12-27 19:50] VITALS: BP 122/54; PULSE 73; RESP 18; TEMP 36.4; O2SAT 98
[2022-12-28] MEDS: HYDROcodone/acetaminophen (*CRX) 10-325 MG TABLET 1 TAB PO (04:01)
[2022-12-28 08:00] VITALS: BP 123/73; PULSE 79; RESP 16; TEMP 36.6; O2SAT 95
[2022-12-28] MEDS: HYDROcodone/acetaminophen (*CRX) 5-325 MG TABLET 1 TAB PO ×2 (09:20→12:19)
[2022-12-28] MEDS: MULTIVIT/MIN/PREN/FOL AC/IRON TABLET 1 TAB PO (09:20)
[2022-12-28] MEDS: IBUPROFEN 600 MG TABLET PO (09:22)
--- NOTE | 2022-12-28 11:22 | PC.NURSE ---
Patient was given the opportunity to view the discharge video Mother & Baby Care, The First Two Weeks and to ask questions. Patient declined viewing the video and has been given the mother/baby guide for home reference.
[2022-12-31 09:53] VITALS: BP 125/72; PULSE 75; RESP 16; TEMP 36.8; O2SAT 99
--- NOTE | 2022-12-31 13:26 | PM.OBDSVD ---
DS: Admitting Diagnosis Discharge Date 12/28/22 Admitting Diagnosis repeat with salpingectomy OB - DS: Summary OB Procedures : Ultrasound OB Procedures Intrapartum: low cervical, vertical and Tubal ligation OB Procedures: : None Peripartum Data Delivery Method: Section Procedures: Procedures Operation Date: 12/26/22 12:00 Actual Procedure Side Surgeon p Section with Tubal Ligation Lucy Butler MD complications: none [place] 1: Gender: Female Disposition of : home Status at Discharge Functional status at discharge: independent ambulation Overall status at discharge: patient is back to baseline Time Spent with Patient Time attestation: Total time spent providing and/or coordinating discharge services: Time spent: Less than 30 minutes Exam Const: General: cooperative, comfortable, no acute distress and obese Orientation/consciousness: patient oriented x3 Resp: Effort & Inspection: normal respiratory effort Auscultation: clear to auscultation bilaterally Cardio: Rate: regular rate GI: Inspection: non-distended and incision (covered with clean dressing) GI Palp: No abdominal tenderness and Yes Soft to palpation Auscultation: normal bowel sounds : Other: fundus firm Skin: General skin exam: normal color Neuro: General: patient oriented x3 Extrem: General: normal to inspection Psych: Appearance: grossly normal Affect: normal affect Attitude: cooperative DS: Data Data Completed and Pending Pending studies at discharge: Pending at discharge 12/26/22 12:43 Surgical [PTH] Routine Discharge Plan Discharge Attending physician on discharge: Lucy Butler Discharging Clinician: Lucy Butler Anticipated Discharge Date/Time: 12/28/22 11:15 Patient Disposition: Home, Self-Care Activity: may shower, may drive after 2 weeks and pelvic rest Diet: regular Discharge Instructions: Education: Mom and Baby Guide Given to: Mother Follow-Up: Call your delivering provider's office for an appointment to be seen in: 4 Weeks Mom [facility] follow-up [facility]. Appointment Date/Time: Saturday, December 31, 2022 at 10:00 a.m. What to expect at your follow-up visit: Blood Pressure Check Physical Assessment Call [phone] if you are unable to keep your appointment time. BREAST CARE: * Wear a snug supportive bra. * For engorgement discomfort: Bottle Feeding: * May apply ice packs * For sore nipples: ABDOMINAL INCISION: (if applicable) * Allow incision to air dry * Do NOT use lotions for powders on your incision * When showering, allow soap and water to run over the incision, but do not wash incision EPISIOTOMY/PERINEAL CARE: * Change your pad frequently throughout the day * You may take sitz baths several times a day (fill your bathtub with warm water and soak for 20 minutes.) Do NOT bathe in the water * No tub baths until seen by your physician - You may shower ACTIVITY: * Rest as much as possible. * Do not exercise or lift anything heavier than your baby (such as laundry or other children.) * Avoid stairs or driving as much as possible. * Do not put anything into the vagina. No douching, tampons, or sexual activity until seen by physician. NOTIFY PHYSICIAN IF YOU HAVE ANY QUESTIONS OR IF ANY OF THE FOLLOWING SYMPTOMS OCCUR: * If your incision becomes red, swollen, or more painful than what you have experienced in the hospital. * If your vaginal bleeding becomes foul smelling. * If your vaginal bleeding becomes more heavy than a period or if your bleeding changes from pink to bright red. However, you may pass an occasional walnut-sized clot once or twice for the first week . * If you experience a sharp, shooting pain in you calves. DIET: * Eat regular, we
== END 2022-12-28 13:05 | disposition home or self-care (01) | DRG 785 ==
LOC: ANHLDR 10:38 → ANHOB2 15:30
PROVIDERS: Admitting Provider Obstetrics & Gynecology; Visit Provider Obstetrics & Gynecology
PROC: (CPT 59514; principal; 2022-12-26 12:00)
DX: O34.219 Maternal care for unspecified type scar from previous cesarean delivery (principal); Z30.2 Encounter for sterilization; Z67.91 Unspecified blood type, Rh negative; O99.214 Obesity complicating childbirth; Z3A.39 39 weeks gestation of pregnancy; Z37.0 Single live birth
CPT/HCPCS: 36415; 85025; 85027; 86592; 86850; 86900; 86901; 88302; A9270; J0131; J0690; J0780; J1100; J1200; J1885; J2270; J2274; J2370; J2405; J2590; J7120

== ENCOUNTER 2023-02-19 10:12 | Outpatient (CLI) | payer OTHER, SELFPAY ==
[2023-02-19 11:02] LABS: Beta HCG Quantitative < 2.39 mIU/ML
== END 2023-02-19 10:13 | disposition home or self-care (01) ==
PROVIDERS: PCP Internal Medicine; Visit Provider Obstetrics & Gynecology
DX: N92.6 Irregular menstruation, unspecified (principal)
CPT/HCPCS: 36415; 84702

== ENCOUNTER 2023-10-06 11:44 | Outpatient (CLI) | payer OTHER, SELFPAY ==
[2023-10-06 19:28] LABS: Basophils Percent Auto 0.5 % (0.2-1.2); Eosinophils Absolute Auto 0.1 K/mm3 (0-0.3); Eosinophils Percent Auto 1.1 % (0-4.4); Hematocrit 44.9 % (37.0-47.0); Hemoglobin 14.1 g/dL (12.0-15.0); Immature Granulocyte Absolute 0.02 K/mm3 (0.00-0.031); Immature Granulocyte Percent A 0.3 % (0-0.5); Lymphocytes Absolute Auto 1.78 K/mm3 (0.9-3.2); Lymphocytes Percent Auto 28.2 % (18.3-44.2); Mean Corpuscular HGB Conc 31.4 g/dl (32-36); Mean Corpuscular Hemoglobin 29.1 pg (26-34); Mean Corpuscular Volume 92.8 fl (80-100); Mean Platelet Volume 10.3 fl (7.4-10.4); Monocytes Absolute Auto 0.5 K/mm3 (0.1-0.6); Monocytes Percent Auto 8.4 % (2.6-8.5); Neutrophils Absolute Auto 3.9 K/mm3 (1.3-6.7); Neutrophils Percent Auto 61.5 % (45.5-73.1); Platelet Count Result 365 k/mm3 (150-375); Red Blood Count 4.84 M/mm3 (4.2-5.4); Red Cell Distribution Width 12.6 % (11.5-14.5); White Blood Count 6.3 K/mm3 (4.5-10.0)
[2023-10-06 19:49] LABS: Alanine Aminotransferase 35 U/L (6-35); Albumin Level 4.5 g/dL (3.5-5.1); Alkaline Phosphatase 90 U/L (38-126); Anion Gap 7 mmol/L (8-16); Aspartate Amino Transferase 37 U/L (14-36); Bilirubin,Total 0.6 mg/dL (0.2-1.3); Blood Urea Nitrogen 17 mg/dL (7-17); Calcium 9.8 mg/dL (8.4-10.2); Carbon Dioxide 28 mmol/L (22-30); Chloride 103 mmol/L (98-107); Estimated Glomerular Filt Rate > 60; Glucose 87 mg/dL (65-110); Potassium 4.1 mmol/L (3.4-5.0); Sodium 138 mmol/L (137-145)
[2023-10-06 19:57] LABS: Vitamin D 25 Hydroxy 27.5 ng/mL
[2023-10-06 20:18] LABS: Thyroid Stimulating Hormone 0.839 uIU/mL (0.465-4.680)
[2023-10-09 05:21] LABS: Thyroid Peroxidase Antibodies <1 IU/mL (<9)
== END 2023-10-06 11:45 | disposition home or self-care (01) ==
LOC: ANHGOSHLAB 11:46
PROVIDERS: PCP Internal Medicine; Visit Provider Clinical Nurse Specialist
DX: D72.829 Elevated white blood cell count, unspecified (principal); E80.6 Other disorders of bilirubin metabolism; F32.9 Major depressive disorder, single episode, unspecified; F41.9 Anxiety disorder, unspecified; G43.909 Migraine, unspecified, not intractable, without status migrainosus; R74.01 Elevation of levels of liver transaminase levels; E55.9 Vitamin D deficiency, unspecified
CPT/HCPCS: 36415; 80053; 82306; 84443; 85025; 86376

== ENCOUNTER 2023-12-26 08:14 | Emergency (ER) | payer OTHER, SELFPAY ==
[2023-12-26 08:35] VITALS: BP 126/86; PULSE 112; RESP 16; TEMP 36.8; O2SAT 100
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
[2023-12-26] MEDS: TRIAMCINOLONE ACET INJ 40 MG/ML VIAL IM (08:54)
== END 2023-12-26 09:08 | disposition home or self-care (01) ==
PROVIDERS: Emergency Provider Nurse Practitioner Family; PCP Clinical Nurse Specialist
DX: L27.0 Generalized skin eruption due to drugs and medicaments taken internally (principal); T36.0X5A Adverse effect of penicillins, initial encounter
CPT/HCPCS: 96372; 99213; G0463; J3301

== ENCOUNTER 2024-04-28 10:04 | Outpatient (CLI) | payer OTHER, SELFPAY ==
[2024-04-28 10:36] LABS: Basophils Percent Auto 0.3 % (0.2-1.2); Eosinophils Absolute Auto 0.1 K/mm3 (0-0.3); Eosinophils Percent Auto 1.9 % (0-4.4); Hematocrit 41.7 % (37.0-47.0); Hemoglobin 14.5 g/dL (12.0-15.0); Immature Granulocyte Absolute 0.02 K/mm3 (0.00-0.031); Immature Granulocyte Percent A 0.3 % (0-0.5); Lymphocytes Absolute Auto 1.74 K/mm3 (0.9-3.2); Mean Corpuscular HGB Conc 34.8 g/dl (32-36); Mean Corpuscular Volume 89.3 fl (80-100); Monocytes Absolute Auto 0.5 K/mm3 (0.1-0.6); Monocytes Percent Auto 6.6 % (2.6-8.5); Neutrophils Absolute Auto 5.1 K/mm3 (1.3-6.7); Neutrophils Percent Auto 67.9 % (45.5-73.1); Platelet Count Result 320 k/mm3 (150-375); Red Blood Count 4.67 M/mm3 (4.2-5.4); Red Cell Distribution Width 11.8 % (11.5-14.5); White Blood Count 7.6 K/mm3 (4.5-10.0)
[2024-04-28 11:37] LABS: Iron 114 ug/dL (37-170)
[2024-04-28 11:46] LABS: Percent Iron Saturation 41 % (20-50)
[2024-04-29 01:40] LABS: Progesterone 0.6 ng/mL
[2024-04-30 06:54] LABS: DHEA-Sulfate 223 mcg/dL (14-349); FSH 8.3 mIU/mL; Prolactin 8.4 ng/mL
[2024-05-04 14:52] LABS: Testosterone Free 4.5 pg/mL (0.1-6.4); Testosterone Total 67 ng/dL (2-45)
[2024-05-06 02:14] LABS: Estradiol, Ultrasensitive 391 pg/mL
== END 2024-04-28 10:05 | disposition home or self-care (01) ==
PROVIDERS: PCP Clinical Nurse Specialist; Visit Provider Obstetrics & Gynecology
DX: N92.0 Excessive and frequent menstruation with regular cycle (principal)
CPT/HCPCS: 36415; 82627; 82670; 82728; 83001; 83540; 83550; 84144; 84146; 84402; 84403; 84443; 85025

== ENCOUNTER 2024-05-05 08:14 | Outpatient (CLI) | payer OTHER, SELFPAY ==
--- NOTE | ~2024-05-05 | US_ITS ---
Pelvic ultrasound. Clinical History: Excessive and frequent menstruation Technique: Realtime transabdominal and transvaginal scanning of the pelvis was performed. Color flow Doppler and Doppler spectral analysis were performed. Findings: The uterus is anteverted. The endometrial stripe has a thickness of 12 mm. No focal mass i s identified. The right ovary measures 3.1 x 2.5 x 1.30 cm. No significant right ovarian or adnexal mass is seen. The left ovary measures 3.4 x 2.7 x 3.3 cm. No significant left ovarian or adnexal mass is seen. Vascular flow present in both ovaries on Doppler spectral analysis. There is no evidence of free fluid in the cul de sac. Impression: Unremarkable pelvic ultrasound. Reviewed, dictated and finalized at [facility]. Impression: Unremarkable pelvic ultrasound.
== END 2024-05-05 08:15 | disposition home or self-care (01) ==
PROVIDERS: PCP Clinical Nurse Specialist; Visit Provider Obstetrics & Gynecology
DX: N92.0 Excessive and frequent menstruation with regular cycle (principal)
CPT/HCPCS: 76830; 76856

== ENCOUNTER 2024-08-21 07:01 | Outpatient (CLI) | payer OTHER, SELFPAY ==
[2024-08-21 08:25] LABS: Alanine Aminotransferase 52 U/L (6-35); Albumin Level 4.1 g/dL (3.5-5.1); Alkaline Phosphatase 75 U/L (38-126); Anion Gap 7 mmol/L (4-12); Aspartate Amino Transferase 38 U/L (14-36); Bilirubin,Total 0.8 mg/dL (0.2-1.3); Blood Urea Nitrogen 14 mg/dL (7-17); Calcium 9.2 mg/dL (8.4-10.2); Carbon Dioxide 27 mmol/L (22-30); Chloride 104 mmol/L (98-107); Cholesterol 179 mg/dL (0-200); Estimated Glomerular Filt Rate > 60; Glucose 75 mg/dL (65-110); HDL Direct 40 mg/dL; Potassium 3.7 mmol/L (3.4-5.0); Sodium 138 mmol/L (137-145); Triglycerides 65 mg/dL (<150)
[2024-08-21 08:36] LABS: LDL Cholesterol Direct 112 mg/dL
--- OUTSIDE RECORDS SUMMARY | 2024-08-26 08:26 | XMS_ITS | Referral Summary ---
Author Organization [facility] Address [address] [place] [id number] Care Team Providers Care Manager University Name Role Phone Favian Ramirez MD Primary Care Provider [phone] Encounters Date Type Department Care Team Description 07/30/2024 12:51 PM RED MUD THICKENER OPERATOR - 07/30/2024 11:59 PM RED MUD THICKENER OPERATOR Hospital Encounter [address] [id number] Pharyngitis, unspecified etiology Discharge Disposition: Discharge to home or self care 07/30/2024 12:30 PM [employer] MUD THICKENER OPERATOR Office Visit [facility] at [address] [phone] Katelynn Slade NP Pharyngitis, unspecified etiology (Primary Dx) from Last 3 Months Allergies Active Allergy Reactions Criticality Noted Date Comments Dicloxacillin Hives Medium 07/30/2024 Medications Zepbound 15 mg/0.5 mL pen injector 06/04/2024 Active Effexor XR 37.5 mg 24 hr capsule Take 1 capsule (37.5 mg total) by mouth daily 01/28/2023 Active Active Problems No known active problems Social History Tobacco Use Types Packs/Day Years Used Date Smoking Tobacco: Never Assessed Comments Unknown Sex and Gender Information Value Date Recorded Sex Assigned at Not on file Legal Sex Female 9:00 AM RED MUD THICKENER OPERATOR Gender Identity Not on file Sexual Orientation Not on file Last Filed Vital Signs Vital Sign Reading Time Taken Comments Blood Pressure 119/78 07/30/2024 12:35 PM RED MUD THICKENER OPERATOR Pulse 98 07/30/2024 12:35 PM RED MUD THICKENER OPERATOR Temperature 36.9 ??C (98.4 ??F) 07/30/2024 12:[address] Respiratory Rate 16 07/30/2024 12:35 PM RED MUD THICKENER OPERATOR Oxygen Saturation 97% 07/30/2024 12:35 PM RED MUD THICKENER OPERATOR Inhaled Oxygen Concentration - - Weight 61.2 kg (135 lb) 07/30/2024 12:35 PM RED MUD THICKENER OPERATOR Height 152.4 cm (5') 07/30/2024 12:35 PM RED MUD THICKENER OPERATOR Body Mass Index 26.37 07/30/2024 12:35 PM RED MUD THICKENER OPERATOR Plan of Treatment Not on file Procedures Procedure Name Priority Date/Time Associated Diagnosis Comments THROAT CULTURE Routine 07/30/2024 9:14 PM RED MUD THICKENER OPERATOR Pharyngitis, unspecified etiology POCT RAPID STREP Routine 07/30/2024 12:5 2 PM RED MUD THICKENER OPERATOR Pharyngitis, unspecified etiology from Last 3 Months Results * Throat culture Throat (07/30/2024 9:14 PM RED MUD THICKENER OPERATOR) Report Final Report: No growth of pathogens. Comment:Testing performed by : [facility], [address], [place]., [address] Throat 07/30/2024 9:14 PM RED MUD THICKENER OPERATOR 07/31/2024 12:38 AM RED MUD THICKENER OPERATOR Narrative ERIC VELASCO - 08/01/2024 9:49 AM RED MUD THICKENER OPERATOR Testing performed by [facility] Microbiology Laboratory ([phone]). us Katelynn Slade NP LAB MICROBIOLOGY - GENERAL ORD ERABLES Final Result ERIC VELASCO [address] [address] Department [place] [address] * POCT rapid strep A (07/30/2024 12:52 PM RED MUD THICKENER OPERATOR) Rapid Strep A, POC Negative Negative Swab 07/30/2024 12:5 2 PM RED MUD THICKENER OPERATOR Katelynn Slade CHAR FILTER TANK TENDER HEAD POINT OF CARE TEST ORDERABLES Final Result from Last 3 Months Insurance [facility] [employer] Care Teams Manager University Relationship Specialty Start Date End Date Favian Ramirez MD [address] [place] [address] PCP - General 07/02/17
--- OUTSIDE RECORDS SUMMARY | 2024-08-26 08:26 | XMS_ITS | Patient Health Summary ---
Author Organization [facility] [employer] Address [address] [facility] [place] [address] Care Team Providers Care Web Marketing Strategist Name Role Phone Favian Rouse DO Primary Care Provider [phone] Note from [facility],non-owned Affiliates and Associated Physician Practices is amultiple site organization consisting of ambulatory clinics and hospital sitesin [place], [place], [place] and [place]. This disclosure is being madepursuant to the Care Everywhere program and may not contain all informatio navailable regarding this patient. Last updated 18.[facility] Allergies No known active allergies Medications * Be aware that medications may not be up to date on this document. Alwaysverify current medications with the patient. * norethindrone-ethinyl estradiol-iron (LOESTRIN FE 1.5/30) 1.5-30 MG-MCG tablet Take 1 Tab by mouth daily. * acetaminophen-codeine (TYLENOL #3) 300-30 MG tablet Take 1 Tab by mouth every 4 hours as needed. Immunizations * INFLUENZA VACCINE, QUADR. (FLUZONE; FLULAVAL; FLUARIX; AFLURIA QUADRIVALENT; 6MO+), 0.5 ML (IIV4)(Given 05/20/2018) Social History Tobacco Use Types Packs/Day Years Used Date Smoking Tobacco: Never Assessed Sex and Gender Information Value Date Recorded Sex Assigned at Not on file Gender Identity Not on file Sexual Orientation Not on file Procedures * SKIN TEST PPD - POINT OF CARE(Performed 01/22/2017) Performed for PPD screening test Results * SKIN TEST PPD - POINT OF CARE (01/22/2017 1:53 PM CDT) PPD 0mm MISCELLANEOUS SAMPLE S / Unknown 01/22/2017 1:53 PM CDT Benny Chacon NON ACOUSTIC OPERATOR-[facility] - POINT OF CARE ORDERABLES Care Teams Web Marketing Strategist Relationship Specialty Start Date End Date Favian Rouse DO PCP - General 09/18/21
--- OUTSIDE RECORDS SUMMARY | 2024-08-26 08:26 | XMS_ITS | Referral Summary ---
Author Organization [facility] [employer] Address [address] [facility] [place] [address] Care Team Providers Care Building Surveyor Name Role Phone Favian Rouse DO Primary Care Provider [phone] Source Comments [facility] [employer],non-owned Affiliates and Associated Physician Practices is amultiple site organization consisting of ambulatory clinics and hospital sitesin [place], [place], [place] and [place]. This disclosure is being madepursuant to the Care Everywhere program and may not contain all information available regarding this patient. Last updated 18.[facility] [employer] Allergies No known active allergies Medications * Be aware that medications may not be up to date on this document. Alwaysverify current medications with the patient. Medication Sig Dispensed Refills Start Date End Date Status norethindrone-ethinyl estradiol-iron (LOESTRIN FE 1.5/30) 1.5-30 MG-MCG tablet Take 1 Tab by mouth daily. Active acetaminophen-codeine (TYLENOL #3) 300-30 MG tablet Take 1 Tab by mouth every 4 hours as needed. Active Immunizations Name Administration Dates Next Due INFLUENZA VACCINE, QUADR. (F LUZONE; FLULAVAL; FLUARIX; AFLURIA QUADRIVALENT; 6MO+), 0.5 ML (IIV4) 05/20/2018 Social History Tobacco Use Types Packs/Day Years Used Date Smoking Tobacco: Never Assessed Sex and Gender Information Value Date Recorded Sex Assigned at Not on file Gender Identity Not on file Sexual Orientation Not on file Plan of Treatment Not on file Administered Medications Care Teams Building Surveyor Relationship Specialty Start Date End Date Favian Rouse DO PCP - General 09/18/21
--- OUTSIDE RECORDS SUMMARY | 2024-08-26 08:26 | XMS_ITS | Clinical Summary ---
Author Organization [facility] [employer] Address [address] [facility] [place] [address] Care Team Providers Care Real Estate Consultant Name Role Phone Favian Rouse DO Primary Care Provider Source Comments [facility],non-owned Affiliates and Associated Physician Practices is amultiple site organization consisting of ambulatory clinics and hospital sitesin [place], [place], [place] and [place]. This disclosure is being madepursuant to the Care Everywhere program and may not contain all information available regarding this patient. Last updated 18.[facility] [employer] Allergies No known active allergies Medications * [...] Orientation Not on file Plan of Treatment Health Maintenance Due Date Last Done Comments PAP SMEAR 1995 HIV SCREENING 11/07/2010 HEPATITIS C SCREENING 11/03/2013 DTAP/TDAP/TD VACCINES (1 - Tdap) 11/07/2014 HEPATITIS B VACCINE (1 of 3 - 19+ 3-dose series) 11/07/2014 COVID-19 VACCINE (1 - 2023-2 5 season) 2024 INFLUENZA VACCINE (#1) 2024 3, 05/20/2018 DEPRESSION SCREENING 08/04/2024 ZOSTER VACCINE (1 of 2) 11/07/2045 HIB VACCINE Aged Out No longer eligi ble based on patient's age to complete this topic HPV VACCINE Aged Out No longer eligi ble based on patient's age to complete this topic MENINGOCOCCAL (Group B) VACCINE Aged Out No longer eligible b ased on patient's age to complete this topic MENINGOCOCCAL VACCINE Aged Out No charley domingo eligible based on patient's age to complete this topic PNEUMOCOCCAL VACCINE Aged Out No long er eligible based on patient's age to complete this topic Care Teams Real Estate Consultant Relationship Specialty Start Date End Date Favian Rouse DO PCP - General 09/18/21
--- OUTSIDE RECORDS SUMMARY | 2024-08-26 08:26 | XMS_ITS | Clinical Summary ---
Author Organization [facility] Address [address] [place] [id number] Care Team Providers Care Quality Engineering Manager Name Role Phone Favian Ramirez MD Primary Care Provider [phone] Allergies Active Allergy Reactions Criticality Noted Date Comments Dicloxacillin Hives Medium 07/30/2024 Medications Zepbound 15 mg/0.5 mL pen injector 06/04/2024 Active Effexor XR 37.5 mg 24 hr capsule Take 1 capsule (37.5 mg total) by mouth daily 01/28/2023 Active Active Problems No known active problems Encounters Date Type Department Care Team Description 07/30/2024 12:51 PM OUTPLACEMENT CONSULTANT - 07/30/2024 11:59 PM OUTPLACEMENT CONSULTANT Hospital Encounter [address] [address] Pharyngitis, unspecified etiology Discharge Disposition: Discharge to home or self care 07/30/2024 12:30 PM OUTPLACEMENT CONSULTANT Office Visit [facility] Care at [address] [address] Katelynn Slade NP Pharyngitis, unspecified etiology (Primary Dx) from Last 3 Months Social History Tobacco Use Types Packs/Day Years Used Date Smoking Tobacco: Never Assessed Comments Unknown Sex and Gender Information Value Date Recorded Sex Assigned at Not on file Legal Sex Female 9:00 AM OUTPLACEMENT CONSULTANT Gender Identity Not on file Sexual Orientation Not on file Obstetrics History Last Filed Vital Signs Vital Sign Reading Time Taken Comments Blood Pressure 119/78 07/30/2024 12:35 PM OUTPLACEMENT CONSULTANT Pulse 98 07/30/2024 12:35 PM OUTPLACEMENT CONSULTANT Temperature 36.9 ??C (98.4 ??F) 07/30/2024 12:[address] Respiratory Rate 16 07/30/2024 12:35 PM OUTPLACEMENT CONSULTANT Oxygen Saturation 97% 07/30/2024 12:35 PM OUTPLACEMENT CONSULTANT Inhaled Oxygen Concentration - - Weight 61.2 kg (135 lb) 07/30/2024 12:35 PM OUTPLACEMENT CONSULTANT Height 152.4 cm (5') 07/30/2024 12:35 PM OUTPLACEMENT CONSULTANT Body Mass Index 26.37 07/30/2024 12:35 PM OUTPLACEMENT CONSULTANT Plan of Treatment Health Maintenance Due Date Last Done Comments Cervical Cancer Screening 1995 Depression Screening 1995 Hepatitis C Screening 1995 Hepatitis B Screening 11/07/2013 Regular Well Visit/Exam 18-64 11/07/2013 Covid-19 Vaccine ( season) 2024 04/23/2023, 10/08/2022, 12/21/2020, Additional history exists Influenza Vaccine (#1) 2024 , 06/05/2022, 03/31/2021, Additional history exists DTaP/Tdap/Td Vaccine (3 - Td or Tdap) 10/08/2032 10/08/2022, 02/23/2021 Varicella Vaccines Completed 01/22/2016, 12/21/2015 HPV Vaccines Aged Out No longer eligi ble based on patient's age to complete this topic Pneumococcal vaccine <65 Aged Out No longer eligible based on patient's age to complete this topic Procedures Procedure Name Priority Date/Time Associated Diagnosis Comments THROAT CULTURE Routine 07/30/2024 9:14 PM OUTPLACEMENT CONSULTANT Pharyngitis, unspecified etiology POCT RAPID STREP Routine 07/30/2024 12:5 2 PM OUTPLACEMENT CONSULTANT Pharyngitis, unspecified etiology from Last 3 Months Results * Throat culture Throat (07/30/2024 9:14 PM OUTPLACEMENT CONSULTANT) Report Final Report: No growth of pathogens. Comment:Testing performed by : [facility], [address] [facility], [place]., [address] Throat 07/30/2024 9:14 PM OUTPLACEMENT CONSULTANT 07/31/2024 12:38 AM OUTPLACEMENT CONSULTANT Narrative ERIC - 08/01/2024 9:49 AM OUTPLACEMENT CONSULTANT Testing performed by [facility] Microbiology Laboratory ([phone]). Katelynn Slade NP LAB MICROBIOLOGY - GENERAL ORD ERABLES Final Result ERIC [facility] [address] Department [place] [address] * POCT rapid strep A (07/30/2024 12:52 PM OUTPLACEMENT CONSULTANT) [facility] Rapid Strep A, POC Negative Negative Swab 07/30/2024 12:5 2 PM OUTPLACEMENT CONSULTANT Katelynn Slade NP POINT OF CARE TEST ORDERABLES Final Result from Last 3 Months Insurance [facility] EMPLOYEES [facility] HMO/PPO Address: [address] [address] Care Teams Quality Engineering Manager Relationship Specialty Start Date End Date Favian Ramirez MD [address] [place] [address] PCP - General 07/02/17
== END 2024-08-21 07:02 | disposition home or self-care (01) ==
LOC: ANHLAB 07:03
PROVIDERS: PCP Internal Medicine; Visit Provider Clinical Nurse Specialist
DX: F41.9 Anxiety disorder, unspecified (principal); F32.9 Major depressive disorder, single episode, unspecified; E80.6 Other disorders of bilirubin metabolism; R74.01 Elevation of levels of liver transaminase levels; E78.00 Pure hypercholesterolemia, unspecified
CPT/HCPCS: 36415; 80053; 80061; 84443

== ENCOUNTER 2024-10-07 09:46 | Outpatient (CLI) | payer OTHER, SELFPAY ==
[2024-10-07 09:58] LABS: Basophils Percent Auto 0.3 % (0.2-1.2); Eosinophils Absolute Auto 0.2 K/mm3 (0-0.3); Eosinophils Percent Auto 2.7 % (0-4.4); Hematocrit 39.2 % (37.0-47.0); Hemoglobin 13.1 g/dL (12.0-15.0); Immature Granulocyte Absolute 0.01 K/mm3 (0.00-0.031); Immature Granulocyte Percent A 0.2 % (0-0.5); Lymphocytes Absolute Auto 2.31 K/mm3 (0.9-3.2); Lymphocytes Percent Auto 38.5 % (18.3-44.2); Mean Corpuscular HGB Conc 33.4 g/dl (32-36); Mean Corpuscular Hemoglobin 30.1 pg (26-34); Mean Corpuscular Volume 90.1 fl (80-100); Mean Platelet Volume 9.9 fl (7.4-10.4); Monocytes Absolute Auto 0.4 K/mm3 (0.1-0.6); Neutrophils Absolute Auto 3.1 K/mm3 (1.3-6.7); Neutrophils Percent Auto 51.3 % (45.5-73.1); Platelet Count Result 284 k/mm3 (150-375); Red Blood Count 4.35 M/mm3 (4.2-5.4); Red Cell Distribution Width 12.3 % (11.5-14.5)
[2024-10-07 10:20] LABS: Alanine Aminotransferase 22 U/L (6-35); Alkaline Phosphatase 51 U/L (38-126); Anion Gap 8 mmol/L (4-12); Aspartate Amino Transferase 23 U/L (14-36); Bilirubin,Total 0.6 mg/dL (0.2-1.3); Blood Urea Nitrogen 18 mg/dL (7-17); Calcium 8.9 mg/dL (8.4-10.2); Carbon Dioxide 24 mmol/L (22-30); Chloride 107 mmol/L (98-107); Estimated Glomerular Filt Rate > 60; Glucose 84 mg/dL (65-110); Potassium 4.5 mmol/L (3.4-5.0); Sodium 139 mmol/L (137-145)
--- OUTSIDE RECORDS SUMMARY | 2024-10-07 10:54 | XMS_ITS | Referral Summary ---
Author Organization [facility] Address [address] [place] [phone] Care Team Providers Care Chemistry Laboratory Technician Name Role Phone Yina Matthew NP Primary Care Provider Encounters Date Type Department Care Team Description 09/18/2024 9:00 AM RESTAURANT COOK Office Visit [facility] Dermatology [address] [place] [address] [address] [place] [phone] Goran Gr MD Jaquez angioma (Primary Dx) 07/30/2024 12:51 PM RESTAURANT COOK - 07/30/2024 11:59 PM RESTAURANT COOK Hospital Encounter [facility] [address] [place], [place] [id number] Pharyngitis, unspecified etiology Discharge Disposition: Discharge to home or self care 07/30/2024 12:30 PM RESTAURANT COOK Office Visit [facility] Medical Group [facility] Care at [address] [address] Katelynn Slade NP Pharyngitis, unspecified [...] on file Legal Sex Female 9:00 AM RESTAURANT COOK Gender Identity Not on file Sexual Orientation Not on file Last Filed Vital Signs Vital Sign Reading Time Taken Comments Blood Pressure 119/78 07/30/2024 12:35 PM RESTAURANT COOK Pulse 98 07/30/2024 12:35 PM RESTAURANT COOK Temperature 36.9 C (98.4 F) 07/30/2024 12:35 PM RESTAURANT COOK Respiratory Rate 16 07/30/2024 12:35 PM RESTAURANT COOK Oxygen Saturation 97% 07/30/2024 12:35 PM RESTAURANT COOK Inhaled Oxygen Concentration - - Weight 61.2 kg (135 lb) 07/30/2024 12:35 PM RESTAURANT COOK Height 152.4 cm (5') 07/30/2024 12:35 PM RESTAURANT COOK Body Mass Index 26.37 07/30/2024 12:35 PM RESTAURANT COOK Plan of Treatment Not on file Procedures Procedure Name Priority Date/Time Associated Diagnosis Comments THROAT CULTURE Routine 07/30/2024 9:14 PM RESTAURANT COOK Pharyngitis, unspecified etiology POCT RAPID STREP Routine 07/30/2024 12:5 2 PM RESTAURANT COOK Pharyngitis, unspecified etiology from Last 3 Months Results * Throat culture Throat (07/30/2024 9:14 PM RESTAURANT COOK) Report Final Report: No growth of pathogens. Comment:Testing performed by : [facility], [address] [place]., [address] Throat 07/30/2024 9:14 PM RESTAURANT COOK 07/31/2024 12:38 AM RESTAURANT COOK Narrative ERIC - 08/01/2024 9:49 AM RESTAURANT COOK Testing performed by [facility] Microbiology Laboratory ([phone]). us Katelynn Slade NP LAB MICROBIOLOGY - GENERAL ORD ERABLES Final Result ERIC [address] [address] Department of Laboratories [place], [place] [id number] * POCT rapid strep A (07/30/2024 12:52 PM RESTAURANT COOK) Rapid Strep A, POC Negative Negative Swab 07/30/2024 12:5 2 PM RESTAURANT COOK Katelynn Slade NP POINT OF CARE TEST ORDERABLES Final Result from Last 3 Months Insurance [facility] HMO/PPO Address: [place] [address] EM[employer]YEES [facility] HMO/PPO Address: [place] [address] Care Teams Chemistry Laboratory Technician Relationship Specialty Start Date End Date Yina Matthew NP [address] [place] [address] [place] [address] PCP - General Cardiovascular Disease 08/31/24
--- OUTSIDE RECORDS SUMMARY | 2024-10-07 10:54 | XMS_ITS | Referral Summary ---
Author Organization [facility] [employer] Address [address] [facility] [place] [address] Care Team Providers Care Bacteriologist Fishery Name Role Phone Favian Rouse DO Primary Care Provider [phone] Source Comments [facility] [employer],non-owned Affiliates and Associated Physician Practices is amultiple site organization consisting of ambulatory clinics and hospital sitesin [place], [place], [place] and [place]. This disclosure is being madepursuant to the Care Everywhere program and may not contain all information available regarding this patient. Last updated 18.[facility] Allergies No known active allergies Medications * [...] Not on file Administered Medications Care Teams Bacteriologist Fishery Relationship Specialty Start Date End Date Favian Rouse DO PCP - General 09/18/21
--- OUTSIDE RECORDS SUMMARY | 2024-10-07 10:54 | XMS_ITS | Patient Health Summary ---
Author Organization [facility] [employer] Address [address] [place] [address] Care Team Providers Care Beauty Culturist Name Role Phone Favian Rouse DO Primary Care Provider [phone]- [phone] Note from [facility],non-owned Affiliates and Associated Physician Practices is amultiple site organization consisting of ambulatory clinics and hospital sitesin [place] and [place]. This disclosure is being madepursuant to the Care Everywhere program and may not contain all informatio navailable regarding this patient. Last updated 18.[facility] Allergies No known active allergies Medications * [...] Unknown 01/22/2017 1:53 PM CDT Benny Chacon SUPERINTENDENT STEVEDORING-PRINCIPAL EMBEDDED SOFTWARE ENGINEER LAB - POINT OF CARE ORDERABLES Care Teams Beauty Culturist Relationship Specialty Start Date End Date Favian Rouse DO PCP - General 09/18/21
--- OUTSIDE RECORDS SUMMARY | 2024-10-07 10:54 | XMS_ITS | Clinical Summary ---
Author Organization [facility] [employer] Address [address] [facility] [place] [address] Care Team Providers Care Recreation Director Name Role Phone Favian Rouse DO Primary Care Provider +1- [phone] Source Comments [facility],non-owned Affiliates and Associated Physician Practices is amultiple site organization consisting of ambulatory clinics and hospital sitesin [place], [place], [place] and [place]. This disclosure is being madepursuant to the Care Everywhere program and may not contain all information available regarding this patient. Last updated 18.[facility] [employer] Allergies No known active allergies Medications * [...] Health Maintenance Due Date Last Done Comments HIV SCREENING 11/07/2010 HEPATITIS C SCREENING 11/03/2013 [...] age to complete this topic Care Teams Recreation Director Relationship Specialty Start Date End Date Favian Rouse DO PCP - General 09/18/21
--- OUTSIDE RECORDS SUMMARY | 2024-10-07 10:54 | XMS_ITS | Clinical Summary ---
Author Organization [facility] Address [address] [place] [phone] Care Team Providers Care Business System Consultant Name Role Phone Yina Matthew NP Primary Care Provider Allergies Active Allergy Reactions Criticality Noted Date Comments Dicloxacillin Hives Medium 07/30/2024 Medications Zepbound 15 mg/0.5 mL pen injector 06/04/2024 Active Effexor XR 37.5 mg 24 hr capsule Take 1 capsule (37.5 mg total) by mouth daily 01/28/2023 Active Active Problems No known active problems Encounters Date Type Department Care Team Description 09/18/2024 9:00 AM SUBSTATION OPERATOR CONVERSION Office Visit [facility] Dermatology [address] [place] [phone] Goran Gr MD Jaquez angioma (Primary Dx) 07/30/2024 12:51 PM SUBSTATION OPERATOR CONVERSION - 07/30/2024 11:59 PM SUBSTATION OPERATOR CONVERSION Hospital Encounter [address] [address] Pharyngitis, unspecified etiology Discharge Disposition: Discharge to home or self care 07/30/2024 12:30 PM SUBSTATION OPERATOR CONVERSION Office Visit [facility] Medical [facility] Care at [address] [address] Katelynn Slade NP Pharyngitis, unspecified etiology (Primary Dx) from Last 3 Months Social History Tobacco Use Types Packs/Day Years Used Date Smoking Tobacco: Never Assessed Comments Unknown Sex and Gender Information Value Date Recorded Sex Assigned at Not on file Legal Sex Female 9:00 AM SUBSTATION OPERATOR CONVERSION Gender Identity Not on file Sexual Orientation Not on file Obstetrics History Last Filed Vital Signs Vital Sign Reading Time Taken Comments Blood Pressure 119/78 07/30/2024 12:35 PM SUBSTATION OPERATOR CONVERSION Pulse 98 07/30/2024 12:35 PM SUBSTATION OPERATOR CONVERSION Temperature 36.9 C (98.4 F) 07/30/2024 12:35 PM SUBSTATION OPERATOR CONVERSION Respiratory Rate 16 07/30/2024 12:35 PM SUBSTATION OPERATOR CONVERSION Oxygen Saturation 97% 07/30/2024 12:35 PM SUBSTATION OPERATOR CONVERSION Inhaled Oxygen Concentration - - Weight 61.2 kg (135 lb) 07/30/2024 12:35 PM SUBSTATION OPERATOR CONVERSION Height 152.4 cm (5') 07/30/2024 12:35 PM SUBSTATION OPERATOR CONVERSION Body Mass Index 26.37 07/30/2024 12:35 PM SUBSTATION OPERATOR CONVERSION Plan of Treatment Health Maintenance Due Date [...] Comments THROAT CULTURE Routine 07/30/2024 9:14 PM SUBSTATION OPERATOR CONVERSION Pharyngitis, unspecified etiology POCT RAPID STREP Routine 07/30/2024 12:5 2 PM SUBSTATION OPERATOR CONVERSION Pharyngitis, unspecified etiology from Last 3 Months Results * Throat culture Throat (07/30/2024 9:14 PM SUBSTATION OPERATOR CONVERSION) Report Final Report: No growth of pathogens. Comment:Testing performed by : [facility], [address] [place]., [address] Throat 07/30/2024 9:14 PM SUBSTATION OPERATOR CONVERSION 07/31/2024 12:38 AM SUBSTATION OPERATOR CONVERSION Narrative ERIC VELASCO - 08/01/2024 9:49 AM SUBSTATION OPERATOR CONVERSION Testing performed by [facility] Microbiology Laboratory ([phone]). us Katelynn Slade NP LAB MICROBIOLOGY - GENERAL ORD ERABLES Final Result ERIC VELASCO [address] [address] Department [place] [address] * POCT rapid strep A (07/30/2024 12:52 PM SUBSTATION OPERATOR CONVERSION) Rapid Strep A, POC Negative Negative Swab 07/30/2024 12:5 2 PM SUBSTATION OPERATOR CONVERSION us Katelynn Slade NP POINT OF CARE TEST ORDERABLES Final Result from Last 3 Months Insurance [facility] [employer] [facility] HMO/PPO Address: [facility] [address] [place] [address] [facility] [employer] [facility] HMO/PPO Address: [address] [address] Care Teams Business System Consultant Relationship Specialty Start Date End Date Yina Matthew NP [address] [place] [address] PCP - General Cardiovascular Disease 08/31/24
== END 2024-10-07 09:47 | disposition home or self-care (01) ==
LOC: ANHLAB 09:48
PROVIDERS: PCP Internal Medicine; Referring Provider Anesthesiology; Visit Provider Obstetrics & Gynecology
DX: N92.1 Excessive and frequent menstruation with irregular cycle (principal); N94.6 Dysmenorrhea, unspecified
CPT/HCPCS: 36415; 80053; 85025; 86850; 86900; 86901

== ENCOUNTER 2024-10-18 00:38 | Day surgery (SDC) | payer OTHER, SELFPAY ==
[2024-10-05 16:49] VITALS: BMI 23.0
--- NOTE | 2024-10-05 17:26 | PC.NURSE ---
Report to the Outpatient Waiting Room, entrance under the green pavilion located off [facility], at 0800 on 10-18-24. Planned Procedure Time: 1000.? Time changes happen often and if your time is changed the preop area will call you the afternoon before. - You and your visitor will be asked to self-screen and do not enter if you have any COVID symptoms. Please call surgeon if you need to reschedule. - A mask is optional within the hospital at this time. Patients may have clear liquids (water, carbonated beverages, clear teas, apple juice) until 3 hours prior to surgery with a maximum of 20 ounces. 0700 - No food from midnight until time of surgery and no smoking, or chewing tobacco (or any form of nicotine). No chewing gum, candy or mints. - Infants may have breast milk until 4 hours before surgery, formula 6 hours prior to surgery. - Children will be allowed to drink immediately following surgery.? If applicable, please bring a bottle or sippy cup to assist with drinking. Juice, water, soda, and popsicles are readily available.? For infants on formula, please bring formula the day of surgery.? Pacifiers are allowed. Take only the following medications with a SIP of water on the morning of surgery: None DO NOT STOP ANY OF YOUR OTHER PRESCRIPTION MEDICATIONS PRIOR TO SURGERY EXCEPT THE FOLLOWING Hold all vitamins and supplements for 3 days per anesthesiologist. Medications to discontinue per physician: Zepbound Date to take last dose: Stop at least 10 days prior to surgery Please no make-up, nail cymraes, hairspray, perfume, deodorant, or body powder the day of surgery.? No jewelry (including any body piercings) or valuables the day of surgery, leave them at home.? Please take a shower or bath the night before, or the morning of, surgery with an antibacterial soap.? Wear comfortable, loose fitting clothing.? Children are encouraged to wear pajamas. - Jewelry must be removed prior to entering the operating room.? Rings and piercings that are not removed may be cut off. - The hospital will not accept responsibility for valuables.? - Please leave all valuables, including medications, at home the day of surgery. If you are going home after surgery, a licensed motorcoach driver must drive you home.? - NO public transportation without another adult if you receive anesthesia. - We recommend that an adult stay with you for 24 hours following discharge. - We also recommend that you do not drive, make important decision, drink alcoholic beverages, or take any drugs that were not prescribed by your health care provider for at least 24 hours after your discharge time. For Pediatric surgeries, we recommend two adults accompany the child home. Follow any additional instructions given to you from your surgeon. Telephone instructions given to Saskia Long and asked if any additional questions and then verbalized understanding. Patient advised to call surgeon office or pre surgery nurse liaison [phone] if any additional questions.
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
[2024-10-18] VITALS (11 sets, daily range): BP systolic 92–122; BP diastolic 44–86; PULSE 57–98; RESP 10–18; TEMP 36.2–37; O2SAT 88–100
--- OUTSIDE RECORDS SUMMARY | 2024-10-18 00:41 | XMS_ITS | Clinical Summary ---
Author Organization [facility] [employer] Address [address] [place] [address] Care Team Providers Care Plant Control Operator Name Role Phone Favian Rouse DO Primary Care Provider Source Comments [facility],non-owned Affiliates and Associated Physician Practices is amultiple site organization consisting of ambulatory clinics and hospital sitesin [place], [place], [place] and [place]. This disclosure is being madepursuant to the Care Everywhere program and may not contain all information available regarding this patient. Last updated 18.[facility] [employer] Allergies No known active allergies Medications * [...] complete this topic MENINGOCOCCAL (Group B) VACCINE SHARED DECISION-MAKING Aged Out No longer eligible based on patient's age to complete this topic MENINGOCOCCAL GROUPS A/C/Y/W VACCINE Aged Out No longer eligible b ased on patient's age to complete this topic PNEUMOCOCCAL VACCINE Aged Out No long er eligible based on patient's age to complete this topic Care Teams Plant Control Operator Relationship Specialty Start Date End Date Favian Rouse DO PCP - General 09/18/21
--- OUTSIDE RECORDS SUMMARY | 2024-10-18 00:41 | XMS_ITS | Patient Health Summary ---
Author Organization [facility] [employer] Address [address] [place] [address] Care Team Providers Care Drywall Installer Name Role Phone Favian Rouse DO Primary Care Provider [phone] Note from [facility],non-owned Affiliates and Associated Physician Practices is amultiple site organization consisting of ambulatory clinics and hospital sitesin [place], [place], [place] and [place]. This disclosure is being madepursuant to the Care Everywhere program and may not contain all informatio navailable regarding this patient. Last updated 18.[facility] [employer] Allergies No known active allergies Medications * [...] Unknown 01/22/2017 1:53 PM CDT Benny Chacon SENIOR ASIC ENGINEER-FOSTER CARE THERAPIST LAB - POINT OF CARE ORDERABLES Care Teams Drywall Installer Relationship Specialty Start Date End Date Favian Rouse DO PCP - General 09/18/21
--- OUTSIDE RECORDS SUMMARY | 2024-10-18 00:41 | XMS_ITS | Referral Summary ---
Author Organization [facility] [employer] Address [address] [place] [address] Care Team Providers Care Desktop Engineer Name Role Phone Favian Rouse DO Primary Care Provider [phone] Source Comments [facility] [employer],non-owned Affiliates and Associated Physician Practices is amultiple site organization consisting of ambulatory clinics and hospital sitesin [place], [place], [place] and [place]. This disclosure is being madepursuant to the Care Everywhere program and may not contain all information available regarding this patient. Last updated 18.[facility] [employer] Allergies No known active allergies Medications * [...] Not on file Administered Medications Care Teams Desktop Engineer Relationship Specialty Start Date End Date Favian Rouse DO PCP - General 09/18/21
--- OUTSIDE RECORDS SUMMARY | 2024-10-18 00:41 | XMS_ITS | Clinical Summary ---
Author Organization [facility] Address [address] [place] [phone] Care Team Providers Care Continuous Wave Operator Name Role Phone Yina Matthew NP Primary Care Provider [phone] Allergies Active Allergy Reactions Criticality Noted Date Comments Dicloxacillin Hives Medium 07/30/2024 Medications Zepbound 15 mg/0.5 mL pen injector 06/04/2024 Active Effexor XR 37.5 mg 24 hr capsule Take 1 capsule (37.5 mg total) by mouth daily 01/28/2023 Active Active Problems No known active problems Encounters Date Type Department Care Team Description 09/18/2024 9:00 AM BUSINESS ADMINISTRATOR Office Visit [facility] Dermatology [address] [place] [phone] Goran Gr MD Jaquez angioma (Primary Dx) 07/30/2024 12:51 PM BUSINESS ADMINISTRATOR - 07/30/2024 11:59 PM BUSINESS ADMINISTRATOR Hospital Encounter [address] [address] Pharyngitis, unspecified etiology Discharge Disposition: Discharge to home or self care 07/30/2024 12:30 PM BUSINESS ADMINISTRATOR Office Visit [facility] Care at [address] [phone] Katelynn Slade NP Pharyngitis, unspecified etiology (Primary Dx) from Last 3 Months Social History Tobacco Use Types Packs/Day Years Used Date Smoking Tobacco: Never Assessed Comments Unknown Sex and Gender Information Value Date Recorded Sex Assigned at Not on file Legal Sex Female 9:00 AM BUSINESS ADMINISTRATOR Gender Identity Not on file Sexual Orientation Not on file Obstetrics History Last Filed Vital Signs Vital Sign Reading Time Taken Comments Blood Pressure 119/78 07/30/2024 12:35 PM BUSINESS ADMINISTRATOR Pulse 98 07/30/2024 12:35 PM BUSINESS ADMINISTRATOR Temperature 36.9 C (98.4 F) 07/30/2024 12:35 PM BUSINESS ADMINISTRATOR Respiratory Rate 16 07/30/2024 12:35 PM BUSINESS ADMINISTRATOR Oxygen Saturation 97% 07/30/2024 12:35 PM BUSINESS ADMINISTRATOR Inhaled Oxygen Concentration - - Weight 61.2 kg (135 lb) 07/30/2024 12:35 PM BUSINESS ADMINISTRATOR Height 152.4 cm (5') 07/30/2024 12:35 PM BUSINESS ADMINISTRATOR Body Mass Index 26.37 07/30/2024 12:35 PM BUSINESS ADMINISTRATOR Plan of Treatment Health Maintenance Due Date [...] Comments THROAT CULTURE Routine 07/30/2024 9:14 PM BUSINESS ADMINISTRATOR Pharyngitis, unspecified etiology POCT RAPID STREP Routine 07/30/2024 12:5 2 PM BUSINESS ADMINISTRATOR Pharyngitis, unspecified etiology from Last 3 Months Results * Throat culture Throat (07/30/2024 9:14 PM BUSINESS ADMINISTRATOR) Report Final Report: No growth of pathogens. Comment:Testing performed by : [facility], [address] [place]., [address] Throat 07/30/2024 9:14 PM BUSINESS ADMINISTRATOR 07/31/2024 12:38 AM BUSINESS ADMINISTRATOR Narrative ERIC VELASCO - 08/01/2024 9:49 AM BUSINESS ADMINISTRATOR Testing performed by [facility] Microbiology Laboratory ([phone]). us Katelynn Slade NP LAB MICROBIOLOGY - GENERAL ORD ERABLES Final Result ERIC VELASCO [address] [address] Department [place] [address] * POCT rapid strep A (07/30/2024 12:52 PM BUSINESS ADMINISTRATOR) Rapid Strep A, POC Negative Negative Swab 07/30/2024 12:5 2 PM BUSINESS ADMINISTRATOR us Katelynn Slade NP POINT OF CARE TEST ORDERABLES Final Result from Last 3 Months Insurance [facility] [employer] [employer] [facility]PPO Address: [facility] [address] [place] [address] [employer] [employer]O Address: [address] [address] Care Teams Continuous Wave Operator Relationship Specialty Start Date End Date Yina Matthew NP [address] [place] [address] PCP - General Cardiovascular Disease 08/31/24
--- OUTSIDE RECORDS SUMMARY | 2024-10-18 00:42 | XMS_ITS | Referral Summary ---
Author Organization [facility] Address [address] [place] [phone] Care Team Providers Care Paper Feeder Name Role Phone Yina Matthew NP Primary Care Provider Encounters Date Type Department Care Team Description 09/18/2024 9:00 AM CASE THERAPIST Office Visit [facility] Dermatology [address] [place] [address] [address] [place] [phone] Goran Gr MD Jaquez angioma (Primary Dx) 07/30/2024 12:51 PM CASE THERAPIST - 07/30/2024 11:59 PM CASE THERAPIST Hospital Encounter [facility] [address] [place], [place] [id number] Pharyngitis, unspecified etiology Discharge Disposition: Discharge to home or self care 07/30/2024 12:30 PM CASE THERAPIST Office Visit [facility] Medical Group [facility] Care at [address] [phone] Katelynn Slade NP Pharyngitis, unspecified [...] on file Legal Sex Female 9:00 AM CASE THERAPIST Gender Identity Not on file Sexual Orientation Not on file Last Filed Vital Signs Vital Sign Reading Time Taken Comments Blood Pressure 119/78 07/30/2024 12:35 PM CASE THERAPIST Pulse 98 07/30/2024 12:35 PM CASE THERAPIST Temperature 36.9 C (98.4 F) 07/30/2024 12:35 PM CASE THERAPIST Respiratory Rate 16 07/30/2024 12:35 PM CASE THERAPIST Oxygen Saturation 97% 07/30/2024 12:35 PM CASE THERAPIST Inhaled Oxygen Concentration - - Weight 61.2 kg (135 lb) 07/30/2024 12:35 PM CASE THERAPIST Height 152.4 cm (5') 07/30/2024 12:35 PM CASE THERAPIST Body Mass Index 26.37 07/30/2024 12:35 PM CASE THERAPIST Plan of Treatment Not on file Procedures Procedure Name Priority Date/Time Associated Diagnosis Comments THROAT CULTURE Routine 07/30/2024 9:14 PM CASE THERAPIST Pharyngitis, unspecified etiology POCT RAPID STREP Routine 07/30/2024 12:5 2 PM CASE THERAPIST Pharyngitis, unspecified etiology from Last 3 Months Results * Throat culture Throat (07/30/2024 9:14 PM CASE THERAPIST) Report Final Report: No growth of pathogens. Comment:Testing performed by : [facility], [address] [place]., [address] Throat 07/30/2024 9:14 PM CASE THERAPIST 07/31/2024 12:38 AM CASE THERAPIST Narrative ERIC - 08/01/2024 9:49 AM CASE THERAPIST Testing performed by [facility] Microbiology Laboratory ([phone]). us Katelynn Slade NP LAB MICROBIOLOGY - GENERAL ORD ERABLES Final Result ERIC [address] [address] Department of Laboratories [place], [place] [id number] * POCT rapid strep A (07/30/2024 12:52 PM CASE THERAPIST) Rapid Strep A, POC Negative Negative Swab 07/30/2024 12:5 2 PM CASE THERAPIST Katelynn Slade NP POINT OF CARE TEST ORDERABLES Final Result from Last 3 Months Insurance EMPLOYEES Care Teams Paper Feeder Relationship Specialty Start Date End Date Yina Matthew NP [address] [place] [id number] PCP - General Cardiovascular Disease 08/31/24
--- NOTE | 2024-10-18 06:58 | WPDHPUPDATE1 ---
History and Physical Update Update Date/Time: 10/18/24 06:58 History and Physical has been reviewed, including an updated exam of the patient. There are NO changes in the patient's condition. Risks, benefits, and alternatives have been discussed and questions answered. Patient agrees to proceed with robotic assisted total laparoscopic hysterectomy with bilateral salpingectomy and cystoscopy.
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
[2024-10-18] MEDS: KETOROLAC 15 MG/ML VIAL (*BKC) IV PUSH (08:40)
[2024-10-18] MEDS: ACETAMINOPHEN 500 MG TABLET 1000 MG PO ×3 (08:40→20:49)
[2024-10-18] MEDS: SCOPOLAMINE 1 MG PATCH 1 PATCH TRANSDERM (08:40)
[2024-10-18] MEDS: LACTATED RINGERS 1,000 ML 30 ML IV CONT ×2 (08:40→12:14)
[2024-10-18 08:52] LABS: BEDSIDEPREGUCG Negative (Negative)
[2024-10-18] MEDS: ceFAZolin 2 GM/D5W 50 ML 2 GM/50 ML BAG IVPB (09:51)
[2024-10-18] MEDS: metroNIDAZOLE 500 MG/ISO 100ML 500 MG/100 ML BAG 100 MG IVPB (09:51)
[2024-10-18] MEDS: BUPIVACAINE/EPINEPHRINE 0.5% 30 ML VIAL INFILTRATE (10:23)
[2024-10-18] MEDS: fentaNYL CITRATE INJ (*CRX) 100 MCG/2 ML VIAL 25 MCG IV PUSH ×6 (12:40→13:27)
--- NOTE | 2024-10-18 12:40 | W.PM.PROC2 ---
Procedure Note - Detailed Date of Procedure 10/18/24 Pre-op Diagnosis Menorrhagia Pelvic pain Post-op Diagnosis Same Procedure Performed Robotic assisted total laparoscopic hysterectomy with cystoscopy Surgeon Lucy Butler MD Anesthesia General and Local (24cc of 0.5% marcaine w/ epi) Findings Uterus 9cm, Cervix 2.5cm, normal ovaries bilaterally, normal appearing uterus. Endometriosis noted on anterior right pelvis and posterior uterus, broad ligament. Significant bladder adhesion to mid uterus; bladder back filled and no defects noted. Bladder without defects or masses; bilateral ureteral efflux. Good hemostasis at end of case. Uterus/cervix: 77g Description of Procedure Saskia was taken to the operating room where she was placed under general anesthesia without issues. She received 2 g Ancef and 500mg Metronidazole. She was then prepped and draped in the usual sterile fashion in the dorsal lithotomy position with her legs in low Sami stirrups, her arms tucked at her side, with a strap over her chest. A time-out was performed. My attention was turned down below where a palacios catheter was placed. A bivalve speculum was placed within the vagina. The cervix was easily identified and the anterior lip of the cervix was grasped with single-tooth tenaculum. The uterus was then sounded to 9cm. The cervix was serially dilated to allow for the RONALD uterine manipulator; which was placed w/o issue (8cm tip with 2.5cm cervical ring). My gloves were changed and attention was then turned to the abdomen. A 5 mm trocar was placed under direct visualization at Cline's point without issue. Once intra-abdominal placement was confirmed, the abdomen was insufflated with carbon dioxide gas. An abdominal survey was performed and the above findings were noted. Two additional ports were placed on the right and left side and the camera port was placed supraumbilical under direct visualization without issues. The 5mm port was switched out for a robot port under direct visualization. The patient was then placed in deep Trendelenburg, with the legs slightly lowered. The robot was then docked. The instruments were placed intra-abdominally under direct visualization. I then un-scrubbed and went to the robotic console. I then started my hysterectomy on the right side. The ureter was easily identified transperitoneally and well out of the surgical field. The round ligament was clamped, coagulated, and transected. The uterine ovarian artery was then serially clamped, coagulated, and transected with good hemostasis. The broad ligament was then dissected anteriorly and posteriorly skeletonizing the uterine artery. The bladder flap was attempted to be developed on the right side and carried around the left, anteriorly, but dense adhesions were noted. The bladder was back filled with water and it was determined that the thick adhesion was bladder adhered to the mid uterus. Paying close attention to not damage the bladder, part of the uterine serosa was left on the bladder to avoid bladder injury. Slowly and carefully, the adhesions were taken down and the bladder was freed. The uterine artery was then serially clamped and coagulated. Once the vessel was adequately coagulated, it was then transected with good hemostasis. The same procedure was then performed on the left side without complications. The uterus was noted to be devascularized. The bladder flap was verified out of the surgical field and the colpotomy was started anteriorly and continued in a clockwise fashion until the uterus was released. The uterus was removed from the abdomen via the vagina without complications. The vaginal cuff had small bleeders that were made hemostatic without complications. The vaginal cuff was then reapproximated using a 0 V lock suture. The pelvis was then irrigated and suctioned free of all clots and debris. Good hemostasis was noted. All instruments were removed from the abdomen and the robot was undocked. I then scrubbed back in and verified that the cuff was intact without any defects. The Palacios catheter was then removed. The cystoscope was placed within the bladder, which filled without difficulty. Bilateral ureteral efflux was noted. The bladder was examined and no defects or abnormalities were visualized. The bladder was drained. The cystoscope was removed. The palacios catheter was replaced under aseptic technique. The 4 laparoscopic incisions were reapproximated using 4-0 Monocryl and covered with Dermabond. The laparoscopic incisions were infiltrated with local anesthesia for better pain control. Sponge, lap, instrument, and needle counts were correct at the end the procedure. Patient was awoken from general anesthesia and taken to recovery in a stable conditions with plans of overnight stay. Estimated Blood Loss 75 IV Fluids 1,000 Urine Output 100 Pathology Yes (Uterus, cervix) Complications No immediate complications Condition Stable Disposition Same day [facility] Billing Surgery - Charge Forward: Surgery Billing
--- NOTE | 2024-10-18 13:43 | PC.NURSE ---
This patient, Saskia Long, was received from PACU on 10/18/24 at 1343. Patient/family oriented to unit policies and routines
[2024-10-18] MEDS: DEXTROSE 5%/0.45% SOD CHL 1,000 ML 125 ML IV CONT (14:33)
[2024-10-18] MEDS: KETOROLAC 30 MG/ML VIAL (*BKC) IV PUSH ×2 (14:35→20:49)
[2024-10-18] MEDS: SIMETHICONE 80 MG TAB.CHEW PO ×2 (14:36→19:20)
[2024-10-18] MEDS: oxyCODONE HCL (*CRX) 5 MG TAB IR 10 MG PO ×2 (15:40→23:58)
[2024-10-18] MEDS: VENLAFAXINE HCL XR 37.5 MG CAP PO (19:20)
[2024-10-18] MEDS: DOCUSATE SODIUM 100 MG CAPSULE PO (19:20)
[2024-10-18] MEDS: HYDROmorphone HCL INJ (*CRX) 1 MG/ML SYR 0.5 MG IV PUSH (19:59)
[2024-10-19] VITALS: BP 95/62; PULSE 70; RESP 18; TEMP 36.7; O2SAT 95
[2024-10-19 03:50] VITALS: BP 98/59; PULSE 66; RESP 18; TEMP 36.7; O2SAT 96
[2024-10-19] MEDS: KETOROLAC 30 MG/ML VIAL (*BKC) IV PUSH (03:50)
[2024-10-19] MEDS: ACETAMINOPHEN 500 MG TABLET 1000 MG PO ×2 (03:50→09:17)
[2024-10-19] MEDS: HYDROmorphone HCL INJ (*CRX) 1 MG/ML SYR 0.5 MG IV PUSH (04:00)
[2024-10-19 04:52] LABS: Basophils Percent Auto 0.2 % (0.2-1.2); Eosinophils Percent Auto 0.1 % (0-4.4); Hematocrit 36.9 % (37.0-47.0); Hemoglobin 11.9 g/dL (12.0-15.0); Immature Granulocyte Absolute 0.04 K/mm3 (0.00-0.031); Immature Granulocyte Percent A 0.4 % (0-0.5); Lymphocytes Absolute Auto 1.74 K/mm3 (0.9-3.2); Lymphocytes Percent Auto 15.9 % (18.3-44.2); Mean Corpuscular HGB Conc 32.2 g/dl (32-36); Mean Corpuscular Hemoglobin 30.4 pg (26-34); Mean Corpuscular Volume 94.4 fl (80-100); Mean Platelet Volume 10.5 fl (7.4-10.4); Monocytes Absolute Auto 0.8 K/mm3 (0.1-0.6); Monocytes Percent Auto 7.2 % (2.6-8.5); Neutrophils Absolute Auto 8.3 K/mm3 (1.3-6.7); Neutrophils Percent Auto 76.2 % (45.5-73.1); Platelet Count Result 269 k/mm3 (150-375); Red Blood Count 3.91 M/mm3 (4.2-5.4); Red Cell Distribution Width 12.5 % (11.5-14.5); White Blood Count 10.9 K/mm3 (4.5-10.0)
[2024-10-19 05:01] LABS: Anion Gap 6 mmol/L (4-12); Blood Urea Nitrogen 9 mg/dL (7-17); Calcium 8.4 mg/dL (8.4-10.2); Carbon Dioxide 27 mmol/L (22-30); Chloride 105 mmol/L (98-107); Estimated CRCL calculation 73 ml/min; Estimated Glomerular Filt Rate > 60; Glucose 105 mg/dL (65-110); Potassium 4.2 mmol/L (3.4-5.0); Sodium 138 mmol/L (137-145)
[2024-10-19] MEDS: LORATADINE 10 MG TABLET PO (05:45)
--- NOTE | 2024-10-19 06:44 | P.PNOB_ITS ---
OPERATIONS ANALYST - A/P Assessment and plan (1) S/P laparoscopic hysterectomy: Code(s): Z90.710 - Acquired absence of both cervix and uterus Status: Acute Postoperative Procedures: Procedures Operation Date: 10/18/24 10:00 Actual Procedure Side Surgeon p Robotic Assisted Total Laparoscopic Hysterectomy with Bilateral Salpingectomy, Cytstoscopy Bilateral Lucy Butler MD Postoperative day: 1 Postoperative status: doing well Postoperative plan: routine post-op care and discharge Time Spent With Patient Time: Total time spent is greater than 50% in coordination of care (as documented) at patient's floor/unit and/or counseling patient: Time with patient: less than 15 minutes OPERATIONS ANALYST- PN:Subj Post-Op Subjective Date/time seen: 10/19/24 06:45 Interval history: POD#1 Saskia reports doing well today. No issues overnight. Her pain is controlled with PO meds. She has tolerated regular diet. She denies any vaginal bleeding. She has voided. She has passed flatus. She has ambulated and denies any symptoms of anemia. Review of Systems 2 Review of Systems: All systems reviewed & are unremarkable except as noted in HPI and below (HPI) Constitutional: Constitutional: Denies chills, Denies fever(s) and Denies headache(s) Eyes: Eyes: Denies change in vision ENT: Denies dizziness and Denies headache(s) Cardiovascular: Cardiovascular: Denies chest pain and Denies rapid heart rate Respiratory: Respiratory: Denies cough Genitourinary: Genitourinary: Denies abnormal vaginal bleeding Neurologic: Denies dizziness and Denies headache(s) Exam 2 Const: General: cooperative, healthy appearing, comfortable and no acute distress Orientation/consciousness: patient oriented x3 Resp: Effort & Inspection: normal respiratory effort Auscultation: clear to auscultation bilaterally Cardio: Rate: regular rate GI: Inspection: normal to inspection and incision ( LSC incisions c/d/i) GI Palp: Yes abdominal tenderness (appropriate) and Yes Soft to palpation A uscultation: normal bowel sounds : Other: normal bleeding on pad Skin: General skin exam: normal color Neuro: General: patient oriented x3 Psych: Appearance: grossly normal Affect: normal affect Attitude: c ooperative OPERATIONS ANALYST - PN: Obj Data Vital Signs Vital Signs: Vital Signs - 24 hr 10/18/24 08:10 10/18/24 12:14 10/18/24 12:25 Temperature 98.3 F 97.1 F L Pulse Rate 82 59 L 64 Respiratory Rate 18 10 L 14 Blood Pressure 110/49 L 92/57 L 108/69 Pulse Oximetry 100 96 98 Oxygen Delivery Room Air Simple Face Mask Simple Face Mask Oxygen Flow Rate 6 6 10/18/24 12:40 10/18/24 12:55 10/18/24 13:05 Temperature Pulse Rate 64 57 L Respiratory Rate 14 14 Blood Pressure 122/44 L 101/54 L Pulse Oximetry 96 95 Oxygen Delivery Simple Face Mask Simple Face Mask Room Air Oxygen Flow Rate 6 6 10/18/24 13:10 10/18/24 13:25 10/18/24 13:35 Temperature 97.5 F L Pulse Rate 76 57 L 57 L Respiratory Rate 12 14 12 Blood Pressure 100/86 96/60 L 101/81 Pulse Oximetry 88 L 98 96 Oxygen Delivery Nasal Cannula Nasal Cannula Nasal Cannula Oxygen Flow Rate 2 2 2 10/18/24 13:50 Temperature 97.1 F L Pulse Rate 90 Respiratory Rate 18 Blood Pressure 106/57 L Pulse Oximetry 98 Oxygen Delivery Oxygen Flow Rate Intake/Output Intake/Output: Intake & Output 10/15/24 10/16/24 10/17/24 10/18/24 23:59 23:59 23:59 23:59 Intake Total 2100 Output Total 150 Balance 1950 Meds/Results Medications: Active Medications Generic Name Dose Route Start Last Admin Trade Name Freq PRN Reason Stop Dose Admin Acetaminophen 1,000 mg 10/18/24 13:41 10/18/24 14:37 Acetaminophen 500 Mg Tablet PO 1,000 mg Q6HR [facility] Administration Docusate Sodium 100 mg 10/18/24 17:00 Docusate Sodium 100 Mg Capsule PO BID [facility] Hydromorphone HCl 0.5 mg 10/18/24 13:41 Hydromorphone Hcl Inj (*Crx) 1 Mg/Ml Syr IV PUSH Q2H PRN Breakthrough Pain Rated 4-6 or NPO Dextrose/Sodium Chloride 1,000 mls @ 125 mls/hr 10/18/24 13:41 10/18/24 14:33 Dextrose 5% Sodium Chloride 0.45% IV CONT 125 mls/hr .Q8H JESSICA Administration Ibuprofen 600 mg 10/19/24 06:00 Ibuprofen 600 Mg Tablet PO Q6HR [facility] Ketorolac Tromethamine 30 mg 10/18/24 13:41 10/18/24 14:35 Ketorolac 30 Mg/Ml Vial (*Bkc) IV PUSH 10/19/24 00:01 30 mg Q6HR JESSICA Administration Metoclopramide HCl 10 mg 10/18/24 13:41 Metoclopramide Hcl Inj 10 Mg/2 Ml Vial IV PUSH Q6HR PRN nausea Naloxone HCl 0.1 mg 10/18/24 13:41 Naloxone Hcl 0.4 Mg/Ml Vial IV PUSH Q2M PRN Respiratory rate less than 10 Ondansetron HCl 4 mg 10/18/24 13:41 Ondansetron Inj 4 Mg/2 Ml Vial IV PUSH Q6H PRN Nausea And Vomiting Oxycodone HCl 5 mg 10/18/24 13:41 Oxycodone Hcl (*Crx) 5 Mg Tab Ir PO Q4H PRN Pain Rated 4-6 Oxycodone HCl 10 mg 10/18/24 13:41 Oxycodone Hcl (*Crx) 5 Mg Tab Ir PO Q6H PRN Pain Rated 7-10 Simethicone 80 mg 10/18/24 13:41 10/18/24 14:36 Simethicone 80 Mg Tab.Chew PO 80 mg TIDWM [facility] Administration Venlafaxine HCl 37.5 mg 10/18/24 18:00 Venlafaxine Hcl Xr 37.5 Mg Cap PO QPM [facility] Labs 10/19/24 03:59 10/19/24 03:59 Labs: Laboratory Results - last 24 hr 10/18/24 08:15 POC Urine HCG, Qual Negative
[2024-10-19] MEDS: SIMETHICONE 80 MG TAB.CHEW PO (07:34)
[2024-10-19] MEDS: DOCUSATE SODIUM 100 MG CAPSULE PO (07:35)
[2024-10-19] MEDS: oxyCODONE HCL (*CRX) 5 MG TAB IR PO (07:35)
[2024-10-19 07:45] VITALS: BP 103/59; PULSE 61; RESP 18; TEMP 37.1; O2SAT 97
[2024-10-19] MEDS: IBUPROFEN 600 MG TABLET PO (09:17)
== END 2024-10-19 10:45 | disposition home or self-care (01) ==
LOC: ANHSURGERY 08:04 → ANHOB2 14:07
PROVIDERS: Anesthesiology; PCP Clinical Nurse Specialist; Visit Provider Obstetrics & Gynecology
PROC: (CPT 58570; principal; 2024-10-18 10:00)
DX: N92.0 Excessive and frequent menstruation with regular cycle (principal); R10.2 Pelvic and perineal pain; N80.00 Endometriosis of the uterus, unspecified; N80.3C9 Endometriosis of the uterosacral ligament(s), unspecified side, unspecified depth; N80.399 Endometriosis of the pelvic peritoneum, other specified sites, unspecified depth; N73.6 Female pelvic peritoneal adhesions (postinfective); F12.90 Cannabis use, unspecified, uncomplicated
CPT/HCPCS: 58570; S2900; 36415; 80048; 85025; 88307; 99199; A9270; J0690; J1100; J1171; J1836; J1885; J2003; J2250; J2405; J2704; J3010; J7030; J7120; Q9968

== ENCOUNTER 2025-04-15 09:23 | Outpatient (CLI) | payer OTHER, SELFPAY ==
[2025-04-15 09:43] LABS: Hematocrit 40.6 % (37.0-47.0); Hemoglobin 13.5 g/dL (12.0-15.0); Immature Granulocyte Percent A 0.2 % (0-0.5); Lymphocytes Absolute Auto 1.93 K/mm3 (0.9-3.2); Mean Corpuscular HGB Conc 33.3 g/dl (32-36); Mean Corpuscular Hemoglobin 30.1 pg (26-34); Mean Corpuscular Volume 90.4 fl (80-100); Nucleated Red Blood Cells Absolute Auto 0.000 K/mm3 (0.0-0.012); Nucleated Red Blood Cells Perc 0.0 % (0.0-0.2); Platelet Count Result 328 k/mm3 (150-375); Red Blood Count 4.49 M/mm3 (4.2-5.4); White Blood Count 4.8 K/mm3 (4.5-10.0)
[2025-04-15 09:51] LABS: Iron 79 ug/dL (37-170)
--- OUTSIDE RECORDS SUMMARY | 2025-04-15 09:51 | XMS_ITS | Clinical Summary ---
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 Gender Identity Not on file Sexual Orientation Not on file Obstetrics History Last Filed Vital Signs Vital Sign Reading Time Taken Comments Blood Pressure 119/78 07/30/2024 12:35 PM SENIOR LINUX ENGINEER Pulse 98 07/30/2024 12:35 PM SENIOR LINUX ENGINEER Temperature 36.9 C (98.4 F) 07/30/2024 12:35 PM SENIOR LINUX ENGINEER Respiratory Rate 16 07/30/2024 12:35 PM SENIOR LINUX ENGINEER Oxygen Saturation 97% 07/30/2024 12:35 PM SENIOR LINUX ENGINEER Inhaled Oxygen Concentration - - Weight 61.2 kg (135 lb) 07/30/2024 12:35 PM SENIOR LINUX ENGINEER Height 152.4 cm (5') 07/30/2024 12:35 PM SENIOR LINUX ENGINEER Body Mass Index 26.37 07/30/2024 12:35 PM SENIOR LINUX ENGINEER Plan of Treatment Health Maintenance Due Date Last Done Comments Cervical Cancer Screening 1995 Depression Screening 1995 Hepatitis C Screening 1995 Hepatitis B Screening 11/07/2013 Regular Well Visit/Exam 18-64 11/07/2013 HPV Vaccines (1 - 3-dose SCDM series) 11/07/2022 Covid-19 Vaccine ( - season) 2025 04/23/2023, 10/08/2022, 12/21/2020, Additional history exists Influenza Vaccine (#1) 2025 , 06/05/2022, 03/31/2021, Additional history exists DTaP/Tdap/Td Vaccine (3 - Td or Tdap) 10/08/2032 10/08/2022, 02/23/2021 Varicella Vaccines Completed 01/22/2016, 12/21/2015 Pneumococcal vaccine <65 Aged Out No longer eligible based on patient's age to complete this topic Insurance [facility] Address: [address] [address] [place] [address] [employer] [facility] [facility] [employer] Address: [address] [address] [place] [address] Care Teams Landscape Supervisor Relationship Specialty Start Date End Date Yina Matthew NP PCP - General Cardiovascular Disease 08/31/24
--- OUTSIDE RECORDS SUMMARY | 2025-04-15 09:51 | XMS_ITS | Clinical Summary ---
Author Organization [facility] Address [address] [place] [address] Care Team Providers Care Cupola Patcher Name Role Phone Favian Rouse DO Primary Care Provider Source Comments [facility],non-owned Affiliates and Associated Physician Practices is amultiple site organization consisting of ambulatory clinics and hospital sitesin [place], [place], [place] and [place]. This disclosure is being madepursuant to the Care Everywhere program and may not contain all information available regarding this patient. Last updated 18.[facility] Allergies No known active allergies Medications * Be aware that medications may not be up to date on this document. Alwaysverify current medications with the patient. norethindrone-et hinyl estradiol-iron (LOESTRIN FE 1.5/30) 1.5-30 MG-MCG tablet Take 1 Tab by mouth daily. Active acetaminophen-co deine (TYLENOL #3) 300-30 MG tablet Take 1 Tab by mouth every 4 hours as needed. Active Immunizations Immunization Administration Dates Next Due INFLUENZA VACCINE, QUADR. 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 Gender Identity Not on file Sexual Orientation Not on file Plan of Treatment Health Maintenance Due Date Last Done Comments HIV SCREENING 11/07/2010 HEPATITIS C SCREENING 11/03/2013 DTAP/TDAP/TD VACCINES (1 - Tdap) 11/07/2014 HEPATITIS B VACCINE (1 of 3 - 19+ 3-dose series) 11/07/2014 PAP SMEAR 11/07/2016 HPV VACCINE (1 - 3-dose SCDM series) 11/07/2022 DEPRESSION SCREENING 08/04/2024 COVID-19 VACCINE (1 - 2023-2 5 season) 2025 INFLUENZA VACCINE (#1) 2025 , 05/20/2018 ZOSTER VACCINE (1 of 2) 11/07/2045 HIB [...] patient's age to complete this topic Insurance [facility] SELF PAY NO INSURANCE Member Subscriber Plan / Payer (Ef fective for All Dates) Name:Prerna Long Member ID:Not on file Relation to Subscriber:Not on file Name:PETRICH,PRERNA A Subscriber ID:Not on file (Home) Address: [address] [place] [address] Payer ID:Not on file Group ID:Not on file Type:Self Pay Address: [facility] Care Teams Cupola Patcher Relationship Specialty Start Date End Date Favian Rouse DO PCP - General 09/18/21
[2025-04-15 10:00] LABS: Alanine Aminotransferase 29 U/L (6-35); Albumin Level 3.9 g/dL (3.5-5.1); Alkaline Phosphatase 68 U/L (38-126); Anion Gap 6 mmol/L (4-12); Aspartate Amino Transferase 32 U/L (14-36); Bilirubin,Total 0.3 mg/dL (0.2-1.3); Blood Urea Nitrogen 12 mg/dL (7-17); Calcium 8.8 mg/dL (8.4-10.2); Carbon Dioxide 28 mmol/L (22-30); Chloride 103 mmol/L (98-107); Cholesterol 146 mg/dL (0-200); Estimated Glomerular Filt Rate > 60; Glucose 72 mg/dL (65-110); HDL Direct 46 mg/dL; Potassium 4.2 mmol/L (3.4-5.0); Sodium 137 mmol/L (137-145); Total Protein 7.1 g/dL (6.3-8.2); Triglycerides 85 mg/dL (<150)
[2025-04-15 10:01] LABS: Percent Iron Saturation 34 % (20-50)
[2025-04-15 10:35] LABS: Ferritin 53.30 ng/mL (6.24-137)
[2025-04-15 10:36] LABS: Thyroid Stimulating Hormone 0.581 uIU/mL (0.465-4.680)
[2025-04-15 10:55] LABS: Vitamin B12 795.0 pg/mL (239-931)
== END 2025-04-15 09:24 | disposition home or self-care (01) ==
LOC: ANHLAB 09:24
PROVIDERS: PCP Internal Medicine; Visit Provider Clinical Nurse Specialist
DX: N92.0 Excessive and frequent menstruation with regular cycle (principal); D72.829 Elevated white blood cell count, unspecified; G43.909 Migraine, unspecified, not intractable, without status migrainosus; K21.9 Gastro-esophageal reflux disease without esophagitis; E80.6 Other disorders of bilirubin metabolism; E78.00 Pure hypercholesterolemia, unspecified; F41.9 Anxiety disorder, unspecified; F32.9 Major depressive disorder, single episode, unspecified; E55.9 Vitamin D deficiency, unspecified; R74.8 Abnormal levels of other serum enzymes
CPT/HCPCS: 36415; 80053; 80061; 82306; 82607; 82728; 83540; 83550; 84443; 85025